=== PATIENT | male | born 1945 | race Caucasian/White ===

== ENCOUNTER → 2016-09-04 | Outpatient (CLI) | payer BC ==
[~2016-09-04] MED LIST: ALBU1AER9 INH; AMOX875T PO; BECL0.3A INH; CLR10 PO; CMD5 PO; FLM4 PO; LORA24TA7 PO; MULT-845 PO; PRED10TA PO; WARF5TAB7 PO
== END | disposition home or self-care (01) ==
LOC: C.MAMM 12:11
PROVIDERS: ATTEND Family Medicine
DX: M85.89 Other specified disorders of bone density and structure, multiple sites (principal)

== ENCOUNTER 2024-02-04 17:36 | Inpatient (IN) ==
--- NOTE | 2024-02-04 17:43 | ED Triage Note ---
Date of Service February 04, 2024 Provider in Triage Author: Tulio Quintero History of Present Illness This patient was briefly evaluated while in triage. An abbreviated physical exam was performed. This patient is a 78-year-old Male who presents to the ED for evaluation hx of RA, asthma congestion and cough x few weeks seen at [facility] today and was tachycardic did an EKG showing sinus tachycardia/atrial flutter denies L/D, denies chest pain history of atrial flutter, PE on Xarelto Physical Exam GENERAL: NAD CARDIOVASCULAR: tachycardic 130-140 RESPIRATORY: CTA ABDOMEN: BS x 4. Nontender to palpation. Initial orders for labs and / or imaging were placed and patient was placed in the waiting area until a bed is available. Please see further documentation for the full ED course.
[2024-02-04] MEDS: dilTIAZem HCl 5 MG/ML 5 ML VIAL IV STA (18:03)
[2024-02-04] MEDS: dilTIAZem HCl 5 MG/ML 5 ML VIAL IV ONE (18:04)
[2024-02-04] MEDS: SODIUM CHLORIDE 0.9% 500 ML IV ONE (18:04)
[2024-02-04 18:12] LABS: Basophils # (auto) 0.03 K/uL (0.00-0.20); Basophils % (auto) 0.3 %; Eosinophils # (auto) 0.13 K/uL (0.00-0.50); Eosinophils % (auto) 1.5 %; Hematocrit (blood only) 42.8 % (42.0-52.0); Hemoglobin 14.4 g/dl (14.0-18.0); Immature Granulocytes # (auto) 0.07 K/uL (0.01-0.20); Immature Granulocytes % (auto) 0.8 %; Lymphocytes # (auto) 1.03 K/uL (1.20-3.40); Lymphocytes % (auto) 11.8 %; Mean Corpuscular Hemoglobin 32.7 pg (25.0-34.0); Mean Corpuscular Hgb Conc 33.6 g/dL (32.0-36.0); Mean Corpuscular Volume 97.1 fL (80.0-100.0); Mean Platelet Volume 9.4 fL (9.4-12.4); Monocytes # (auto) 0.77 K/uL (0.11-0.59); Monocytes % (auto) 8.8 %; Neutrophils % (auto) 76.8 %; Platelet Count 201 K/uL (130-400); RDW Coefficient of Variation 12.9 % (11.5-14.5); RDW Standard Deviation 46.3 fL (36.4-46.3); Red Blood Count 4.41 M/uL (4.70-6.10); White Blood Count 8.73 K/ul (4.8-10.8)
--- NOTE | 2024-02-04 18:19 | Emergency Department Note ---
History of Present Illness General Chief complaint: Cardiac Assessment Stated complaint: high rate of heart beat,coughing, Time Seen by Provider: 02/04/24 17:54 History of Present Illness Provider complaint: Cough palpitations difficulty breathing Onset (ago): week(s) 2 Associated symptoms: + cough and + shortness of breath; no fever/chills 78-year-old male with history of PE on Xarelto presents emergency department for cough palpitations and difficulty breathing. Patient reports his symptoms started 3 weeks ago. Patient states he is currently on prednisone and azithromycin but has not been helping. He states his cough has been causing him to have difficulty breathing which has been causing him to have palpitations. Patient states he has a history of atrial flutter and he feels like he might be in atrial flutter again. No chest pain. No missed doses of Xarelto. Home Medications Medication Instructions Recorded Confirmed Type albuterol sulfate 90 mcg/actuation 2 puff inhalation Q6H PRN 01/23/18 11/15/21 History aerosol inhaler Shortness Of Breath Or Wheezing folic acid 800 mcg tablet 800 mcg PO QAM 01/23/18 11/15/21 History hydroxychloroquine 200 mg tablet 400 mg PO QAM 01/23/18 11/15/21 History losartan 100 mg tablet 100 mg PO QAM 01/23/18 11/15/21 History multivitamin 1 tab PO QAM 01/23/18 11/15/21 History alendronate 70 mg tablet (Fosamax) 70 mg PO WK 09/06/21 11/15/21 History budesonide-formoterol HFA 80 1 inh inhalation BID 09/06/21 11/15/21 History mcg-4.5 mcg/actuation aerosol inhaler (Symbicort) cholecalciferol (vitamin D3) 125 125 mcg PO QAM 09/06/21 11/15/21 History mcg (5,000 unit) tablet (Vitamin D3) loratadine 10 mg tablet (Claritin) 10 mg PO QAM 09/06/21 11/15/21 History rivaroxaban 20 mg tablet (Xarelto) 20 mg PO QAM 09/06/21 11/15/21 History mirabegron 50 mg tablet,extended 50 mg PO DAILY #90 tabs 11/15/21 11/15/21 Rx release 24 hr (Myrbetriq) oxycodone 5 mg tablet 5 mg PO Q6H PRN pain #12 tabs 04/10/22 Rx Allergies Allergy/AdvReac Type Severity Reaction Status Date / Time Sulfa (Sulfonamide Allergy Mild Unknown Verified 11/15/21 09:06 Antibiotics) Past Med/Surg History Problem List (Updated 02/04/24 @ 19:19 by Leonardo Banegas MD) Atrial fibrillation with RVR (Acute) Encounter for pre-operative examination BPH (benign prostatic hyperplasia) BPH with obstruction/lower urinary tract symptoms COVID-19 (Acute) MTHFR (methylene THF reductase) deficiency and homocystinuria Allergic rhinitis Acquired deviated nasal septum History of pulmonary embolism d/t clotting disorder - early 1999' approx. 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 Mcdermott History of COVID-04 June 2021 - congestion History of MTHFR mutation taking xarelto daily - Dr. Mcdermott BPH (benign prostatic hyperplasia) Rheumatoid arthritis HTN (hypertension) Surgical History S/P scrotal varicocelectomy History of tonsillectomy Family History Father Hypertension Mother Hypertension Other No family history of adverse response to anesthesia No family history of bleeding disorder Social History Smoking Status: Former smoker Tobacco Type: Cigarettes Cigarettes Per Day: pack every couple days; Second Hand Exposure: No; Do You Dip or Chew Tobacco: No; Hx Alcohol Use: Yes Alcohol type: beer, wine and hard liquor Hx Substance Use: No Preferred Language: Romanian Communication Ability: Effective Vibrating Screen Operator Required: No Beliefs That Will Affect Care: None marital status: Current Living Situation: Spouse current occupational status: retired Feels Safe at Home: Yes Assistive Devices: Glasses Physical Exam Vital Signs Vital Signs - 24 hr 02/04/24 17:40 02/04/24 17:56 02/04/24 18:19 Temperature 36.5 C Temperature Source Temporal Artery Scan Pulse Rate 145 H 135 H Respiratory Rate 22 Blood Pressure 129/89 Blood Pressure Mean 102 Pulse Oximetry 95 95 Oxygen Delivery Method Room Air Room Air Oxygen Flow Rate 0 Sepsis Recent Fever Within 48 Hours No Sepsis New/Unexplained Change in Mental Status No Sepsis Action Taken by Nursing No Action Required Physical Exam GENERAL: oriented to person, place, and time. appears well-developed and well- nourished. HENT: Exam performed. - Head: Normocephalic and atraumatic. EYES: Conjunctivae and EOM are normal. Right eye exhibits no discharge. Left eye exhibits no discharge. No scleral icterus. NECK: Normal range of motion. Neck supple. No JVD present. CV: Tachycardic rate, irregular rhythm, normal heart sounds and intact distal pulses. There is no peripheral edema. Palpable radial pulses bue. PULM/CHEST: Rhonchi bilaterally. ABD: The abdomen is soft. There is no tenderness. NEURO: Motor and sensation grossly intact. SKIN: Skin is warm and dry. He is not diaphoretic. PSYCH: normal mood and affect. Behavior is normal. Judgment and thought content normal. Course Course 1753: The patient was evaluated in room A12. A complete history and physical exam was performed Cardiac monitoring: An order was placed for continuous cardiac monitoring. The monitor shows a rate of 145 with atrial flutter rhythm interpreted by me Large-bore IV access was obtained. Patient found to be in atrial flutter with rapid ventricular response. Cardizem 20 mg bolus was pushed on the patient which improved the patient's ventricular rate. 1918: Patient became tachycardic after IV bolus of Cardizem. Patient is on Cardizem drip which controlled the patient's ventricular rate. X-ray shows fluid overload. Lasix ordered for the patient. Labs are otherwise unremarkable. [facility]. Administered Medications Sodium Chloride (Nss) 500 mls @ 125 mls/hr IV .Q4H REPLACED BY [facility] Stop: 02/04/24 21:59 Last Admin: 02/04/24 18:21 Dose: 125 mls/hr Documented By: BERNADETTE Diltiazem HCl 125 mg/ Dextrose 125 mls @ 5 mls/hr IV .Q24H MAINE; Protocol Stop: 03/05/24 18:14 Last Admin: 02/04/24 18:23 Dose: 5 mg/hr, 5 mls/hr Documented By: BERNADETTE Co-signed By: Discontinued Medications Diltiazem HCl (Diltiazem Hcl 5 Mg/Ml 5 Ml Vial) Confirm Administered Dose 25 mg IV .STK-MED ONE Stop: 02/04/24 17:57 Last Admin: 02/04/24 18:04 Dose: Not Given Documented By: CC Diltiazem HCl (Diltiazem Hcl 5 Mg/Ml 5 Ml Vial) 20 mg IV NOW STA Stop: 02/04/24 17:58 Last Admin: 02/04/24 18:03 Dose: 20 mg Documented By: CC Co-signed By: SANDY Hydrocodone Bit/Homatropine Methylb (Hydrocodone/Homatropine Syrup 5mg/1.5mg 5ml Udp) 5 ml PO NOW STA Stop: 02/04/24 18:03 Last Admin: 02/04/24 18:20 Dose: 5 ml Documented By: BERNADETTE Sodium Chloride (Nss) 500 mls @ 999 mls/hr IV .Q31M ONE Stop: 02/04/24 18:30 Last Infusion: 02/04/24 18:19 Dose: Infused Documented By: Admin: 02/04/24 18:04 Dose: 999 mls/hr Documented By: OC Miscellaneous (Stat Iv Infusion Titration Per Protocol) 1 each N/A NOW STA Stop: 02/04/24 18:03 Last Admin: 02/04/24 18:57 Dose: Not Given Documented By: DEMOND Critical Care Time Critical Care Time: Yes Total Critical Care Time: 71 I have personally spent greater than 71 minutes of critical care time in the direct management of this patient. This includes bedside care, interpretation of diagnostic studies, and testing, discussion with consultants, patient, and family members, and other required patient management activities. This 71 minutes is in excess of all separately billable procedures. Medical Decision Making Laboratory Data Attestation: I reviewed the patient's lab results. 02/04/24 17:50 02/04/24 17:50 Lab Results 02/04/24 Range/Units 17:50 WBC 8.73 (4.8-10.8) K/ul RBC 4.41 L (4.70-6.10) M/uL Hgb 14.4 (14.0-18.0) g/dl Hct 42.8 (42.0-52.0) % MCV 97.1 (80.0-100.0) fL MCH 32.7 (25.0-34.0) pg MCHC 33.6 (32.0-36.0) g/dL RDW Std Deviation 46.3 (36.4-46.3) fL RDW Coeff of Susan 12.9 (11.5-14.5) % Plt Count 201 (130-400) K/uL MPV 9.4 (9.4-12.4) fL Immature Gran % (Auto) 0.8 % Neut % (Auto) 76.8 % Lymph % (Auto) 11.8 % [place] % (Auto) 8.8 % Eos % (Auto) 1.5 % Baso % (Auto) 0.3 % Neut # (Auto) 6.70 H (1.40-6.50) K/uL Lymph # (Auto) 1.03 L (1.20-3.40) K/uL [place] # (Auto) 0.77 H (0.11-0.59) K/uL Eos # (Auto) 0.13 (0.00-0.50) K/uL Baso # (Auto) 0.03 (0.00-0.20) K/uL Immature Gran # (Auto) 0.07 (0.01-0.20) K/uL PT 13.5 H (9.0-12.0) Seconds INR 1.3 H (0.9-1.1) APTT 29 (21-31) Seconds PTT Ratio 1.1 Sodium 142 (136-145) mmol/L Potassium 4.6 (3.5-5.1) mmol/L Chloride 108 H (98-107) mmol/L Carbon Dioxide 29 (21-32) mmol/L Anion Gap 5 (3-11) BUN 22 (6-23) mg/dl Creatinine 0.97 (0.6-1.4) mg/dl Est Cr Clr Drug Dosing 70.9 ml/min eGFR 79.90 BUN/Creatinine Ratio 22.7 H (10-20) Glucose 91 (70-99(Fasting)) mg/dl Calcium 10.0 (8.6-10.3) mg/dl Magnesium 2.0 (1.7-2.4) mg/dl Total Bilirubin 0.6 (0.2-1.0) mg/dl AST 22 (13-39) U/L ALT 22 (7-52) U/L Alkaline Phosphatase 44 (34-104) U/L Troponin I High Sens 14.3 (0-20) pg/ml Total Protein 6.8 (6.0-8.3) gm/dl Albumin 4.5 (3.4-5.0) gm/dl Globulin 2.3 L (2.5-4.0) gm/dl Albumin/Globulin Ratio 2.0 (0.9-2) TSH 1.432 (0.300-4.500) uIu/ml Imaging Data Attestation: I personally reviewed and interpreted this imaging study as follows: My Impression: Chest x-ray: Cardiomegaly with cephalization Radiologist's Impression: Chest X-Ray 02/04/24 17:43 SINGLE VIEW CHEST CLINICAL HISTORY: Cough. Tachycardia FINDINGS: 2 AP, portable, upright chest radiographs are compared to study dated 01/23/2018 and correlated with chest CT dated 04/10/2022. The heart is enlarged noting atherosclerotic calcification of the thoracic aorta. There is pulmonary vascular congestion. Scarring/atelectasis is noted at the lung bases. No large pleural effusion or pneumothorax is seen. The skeletal structures are osteopenic. There are chronic/healed right-sided rib fractures. IMPRESSION: Cardiomegaly with pulmonary vascular congestion. Radiographic follow-up to resolution is recommended. ACT 112: Negative or not required by law. Electronically signed by: Marcni Ceja M.D. 02/04/2024 6:33 PM ECG Data Attestation: I personally reviewed and interpreted this ECG as follows: Additional Comments: EKG #1 at 1747: Atrial flutter with a rate of 135. QRS QTc intervals within normal limits. No ST elevation or ST depression. EKG #2 at 1801 status post Cardizem 20 mg IV bolus: Atrial fibrillation with a rate of 110. QRS and QTc intervals within normal limits. No ST elevation or ST depression. [facility] Narrative 1754: The patient was evaluated in room A12. A complete history and physical exam was performed Cardiac monitoring: An order was placed for continuous cardiac monitoring. The monitor shows a rate of 145 with atrial flutter rhythm interpreted by me Large-bore IV access was obtained. Patient found to be in atrial flutter with rapid ventricular response. Cardizem 20 mg bolus was pushed on the patient which improved the patient's ventricular rate. 1918: Patient became tachycardic after IV bolus of Cardizem. Patient is on Cardizem drip which controlled the patient's ventricular rate. X-ray shows fluid overload. Lasix ordered for the patient. Labs are otherwise unremarkable. Patient will be admitted for A-fib RVR to the [facility] hospitalist team. Impression & Plan Atrial fibrillation with RVR Discharge Plan Visit Data Chief Complaint: Cardiac Assessment Stated Complaint: high rate of heart beat,coughing, ED Provider: Leonardo Banegas Discharge Problem: Atrial fibrillation with RVR Patient Disposition: Being Evaluated by Hospitalist Forms Stand Alone Forms: My [facility] Prescriptions Prescriptions: No Action Myrbetriq 50 mg tablet extended release 24 hr 50 mg PO DAILY Qty: 90 3RF multivitamin Tablet 1 tab PO QAM hydroxychloroquine 200 mg tablet 400 mg PO QAM albuterol sulfate 90 mcg/actuation Hfa Aerosol Inhaler 2 puff INHALATION Q6H PRN (Reason: Shortness Of Breath Or Wheezing) losartan 100 mg tablet 100 mg PO QAM folic acid 800 mcg Tablet 800 mcg PO QAM oxycodone 5 mg tablet 5 mg PO Q6H PRN (Reason: pain) Qty: 12 0RF Rx Instructions: Initial Treatment alendronate [Fosamax] 70 mg Tablet 70 mg PO WK loratadine [Claritin] 10 mg Tablet 10 mg PO QAM budesonide-formoterol [Symbicort] 80-4.5 mcg/actuation Hfa Aerosol Inhaler 1 inh INHALATION BID cholecalciferol (vitamin D3) [Vitamin D3] 125 mcg (5,000 unit) Tablet 125 mcg PO QAM Xarelto 20 mg Tablet 20 mg PO QAM Referrals Referrals: Martell Stout DO [Primary Care Provider] -
[2024-02-04] MEDS: HYDROcodone/HOMATROPINE SYRUP 5MG/1.5MG 5ML UDP PO STA (18:20)
[2024-02-04] MEDS: SODIUM CHLORIDE 0.9% 500 ML IV SCH (18:21)
[2024-02-04] MEDS: dilTIAZem HCL 125 MG in DEXTROSE 5% 100 ML IV SCH (18:23)
[2024-02-04 18:28] LABS: Albumin Level 4.5 gm/dl (3.4-5.0); BUN Creatinine Ratio 22.7 (10-20); Bilirubin,Total 0.6 mg/dl (0.2-1.0); Creatinine Clr Calc Pharmacy 70.9 ml/min; Globulin 2.3 gm/dl (2.5-4.0); Potassium 4.6 mmol/L (3.5-5.1); Total Protein 6.8 gm/dl (6.0-8.3)
[2024-02-04 18:34] LABS: Troponin I High Sensitivity 14.3 pg/ml (0-20)
--- NOTE | 2024-02-04 18:34 | XRay Report ---
SINGLE VIEW CHEST CLINICAL HISTORY: Cough. Tachycardia FINDINGS: 2 AP, portable, upright chest radiographs are compared to study dated 01/23/2018 and correl ated with chest CT dated 04/10/2022. The heart is enlarged noting atherosclerotic calcification of th e thoracic aorta. There is pulmonary vascular congestion. Scarring/atelectasis is noted at the lung b ases. No large pleural effusion or pneumothorax is seen. The skeletal structures are osteopenic. Ther e are chronic/healed right-sided rib fractures. IMPRESSION: Cardiomegaly with pulmonary vascular congestion. Radiographic follow-up to resolution is recommended. ACT 112: Negative or not required by law. Electronically signed by: Marcin Ceja M.D. 02/04/2024 6:33 PM
[2024-02-04 18:42] LABS: INR 1.3 (0.9-1.1); Partial Thromboplastin Ratio 1.1; Partial Thromboplastin Time 29 Seconds (21-31); Prothrombin Time 13.5 Seconds (9.0-12.0); Thyroid Stimulating Hormone 1.432 uIu/ml (0.300-4.500)
[2024-02-04] MEDS: STAT IV Infusion **Titration per Protocol STA (18:57)
[2024-02-04] MEDS: FUROSEMIDE 40 MG/4 ML VIAL IV ONE (19:19)
--- NOTE | 2024-02-04 20:09 | History & Physical Report ---
Date of Service February 04, 2024 Assessment & Plan (1) Atrial flutter with rapid ventricular response: (2) CHF exacerbation: (3) BPH with obstruction/lower urinary tract symptoms: (4) History of pulmonary embolism: (5) Asthma: (6) Rheumatoid arthritis: (7) HTN (hypertension): Plan Atrial flutter with RVR/history [id number]/CHF exacerbation/hypertension- The patient will be admitted to telemetry for serial cardiac enzymes, serial EKG's, cardiac rhythm monitoring and a 2-D echocardiogram with Dopplers. Initial troponin 14.3, with follow-up pending Status post Cardizem 20 mg IV push, followed by Cardizem drip, which will be continued Given furosemide 40 mg IV, after initial 500 mL bolus of normal saline by the ED. Furosemide 40 mg IV every morning Continue Xarelto Hold losartan Consult cardiology Cough/asthma- Continue Symbicort 1 inhalation twice daily, and albuterol HFA 2 puffs every 6 hours as needed Send a respiratory BioFire, since symptoms began with a cough Rheumatoid arthritis- Continue hydroxychloroquine, folic acid Acetaminophen 650 mg by mouth every 6 hours as needed for mild pain or fever Continue oxycodone 5 mg p.o. every 6 hours as needed moderate to severe pain BPH with LUTS/bladder spasm- Continue mirabegron History of Present Illness Chief Complaint: The patient presents to the emergency department with report of a cough that began about 2 weeks ago, that he attributed to allergies and asthma, but has not responded to use of his antihistamine and increased use of his inhaler. Today he developed the acute onset of rapid heart rate and palpitations, and with his known history of atrial flutter, he presented to the ED for assessment. Primary Care Provider: Martell Stout DO The patient is a 78-year-old male with past medical history including atrial flutter on chronic Xarelto, BPH with LUTS, MTHFR, allergic rhinitis, history of pulmonary embolism, obesity, asthma, osteoporosis, rheumatoid arthritis, and chronic pain syndrome. Presents to the emergency department with symptoms as noted above. He was found to be in atrial flutter with RVR, and started on Cardizem bolus/drip per protocol by the ED. Chest x-ray also revealed congestive heart failure, and fluids he received furosemide 40 mg IV after initial 500 mL bolus of normal saline. Due to symptoms presenting with cough, respiratory BioFire was advised to be sent, and is pending at this time Allergies Allergy/AdvReac Type Severity Reaction Status Date / Time Sulfa (Sulfonamide Allergy Mild Unknown Verified 11/15/21 09:06 Antibiotics) Home Medications Medication Instructions Recorded Confirmed Type albuterol sulfate 90 mcg/actuation 2 puff inhalation Q6H PRN 01/23/18 11/15/21 History aerosol inhaler Shortness Of Breath Or Wheezing folic acid 800 mcg tablet 800 mcg PO QAM 01/23/18 11/15/21 History hydroxychloroquine 200 mg tablet 400 mg PO QAM 01/23/18 11/15/21 History losartan 100 mg tablet 100 mg PO QAM 01/23/18 11/15/21 History multivitamin 1 tab PO QAM 01/23/18 11/15/21 History alendronate 70 mg tablet (Fosamax) 70 mg PO WK 09/06/21 11/15/21 History budesonide-formoterol HFA 80 1 inh inhalation BID 09/06/21 11/15/21 History mcg-4.5 mcg/actuation aerosol inhaler (Symbicort) cholecalciferol (vitamin D3) 125 125 mcg PO QAM 09/06/21 11/15/21 History mcg (5,000 unit) tablet (Vitamin D3) loratadine 10 mg tablet (Claritin) 10 mg PO QAM 09/06/21 11/15/21 History rivaroxaban 20 mg tablet (Xarelto) 20 mg PO QAM 09/06/21 11/15/21 History mirabegron 50 mg tablet,extended 50 mg PO DAILY #90 tabs 11/15/21 11/15/21 Rx release 24 hr (Myrbetriq) oxycodone 5 mg tablet 5 mg PO Q6H PRN pain #12 tabs 04/10/22 Rx Past Med/Surg History Problem List (Updated 02/04/24 @ 20:03 by Blayne Guerrero MD) HTN (hypertension) Rheumatoid arthritis CHF exacerbation Atrial flutter with rapid ventricular response Atrial fibrillation with RVR (Acute) Encounter for pre-operative examination BPH (benign prostatic hyperplasia) BPH with obstruction/lower urinary tract symptoms COVID-19 (Acute) MTHFR (methylene THF reductase) deficiency and homocystinuria Allergic rhinitis Acquired deviated nasal septum 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 Mcdermott History of COVID-04 June 2021 - congestion History of MTHFR mutation taking xarelto daily - Dr. Mcdermott BPH (benign prostatic hyperplasia) Rheumatoid arthritis HTN (hypertension) Surgical History S/P scrotal varicocelectomy History of tonsillectomy Family History Father Hypertension Mother Hypertension Other No family history of adverse response to anesthesia No family history of bleeding disorder Social History Smoking Status: Former smoker Tobacco Type: Cigarettes Cigarettes Per Day: pack every couple days; Second Hand Exposure: No; Do You Dip or Chew Tobacco: No; Hx Alcohol Use: Yes Alcohol type: beer, wine and hard liquor Hx Substance Use: No Preferred Language: Lao Communication Ability: Effective Supervisor Cook Room Required: No Beliefs That Will Affect Care: None marital status: Current Living Situation: Spouse current occupational status: retired Feels Safe at Home: Yes Assistive Devices: Glasses Review of Systems Review of Systems: The patient denies chest pain, lower extremity swelling, or leg sore throat, fevers, chills, sweats, nausea, vomiting, diarrhea , constipation, abdominal pain, pelvic pain, blood in urine or stool, dysuria, urinary frequency or urgency, lightheadedness, dizziness, headache, memory loss, loss of consciousness, rash, abnormal bruising or bleeding, imbalance, focal weakness, numbness or tingling in arms or legs, generalized arthralgias or myalgias, back or neck pain, or night sweats. The review of systems is otherwise negative other than for that already noted above, and at least 10 systems have been reviewed. Physical Exam Physical Exam: The patient is awake, alert and oriented 3, well developed and well nourished, normocephalic and atraumatic, lying in bed and in no acute distress. HEENT--PERRL, EOMI, mucous membranes and oropharynx normal Neck--supple. No JVD. No bruits. Thyroid normal, trachea midline, no adenopathy. Heart--normal S1 and S2. No murmurs, rubs or gallops. Lungs--crackles at the bases bilaterally. No respiratory distress, no accessory muscle use. Abdomen--normal bowel sounds and soft. Nontender. Nondistended. Tympanitic. Obese Extremities--1+ bilateral pretibial pitting edema. Dermatologic--normal skin turgor, normal color, no abnormal lymph nodes, no rash. Neurologic--cranial nerves II through XII grossly intact. Rheumatologic--normal range of motion. Psychiatric--normal affect. Results & Data Results & Data Vital Signs (Past 12 Hours) Vital Signs Temp Pulse Resp BP Pulse Ox O2 Del Method O2 Flow Rate 02/04/24 19:01 114 H 18 123/89 95 Room Air 02/04/24 18:19 95 Room Air 0 02/04/24 17:56 135 H 02/04/24 17:40 36.5 C 145 H 22 129/89 95 Room Air Laboratory Results Laboratory Results WBC 8.73 K/ul (4.8-10.8) 02/04/24 17:50 RBC 4.41 M/uL (4.70-6.10) L 02/04/24 17:50 Hgb 14.4 g/dl (14.0-18.0) 02/04/24 17:50 Hct 42.8 % (42.0-52.0) 02/04/24 17:50 MCV 97.1 fL (80.0-100.0) 02/04/24 17:50 MCH 32.7 pg (25.0-34.0) 02/04/24 17:50 MCHC 33.6 g/dL (32.0-36.0) 02/04/24 17:50 RDW Std Deviation 46.3 fL (36.4-46.3) 02/04/24 17:50 RDW Coeff of Susan 12.9 % (11.5-14.5) 02/04/24 17:50 Plt Count 201 K/uL (130-400) 02/04/24 17:50 MPV 9.4 fL (9.4-12.4) 02/04/24 17:50 Immature Gran % (Auto) 0.8 % 02/04/24 17:50 Neut % (Auto) 76.8 % 02/04/24 17:50 Lymph % (Auto) 11.8 % 02/04/24 17:50 Cambria % (Auto) 8.8 % 02/04/24 17:50 Eos % (Auto) 1.5 % 02/04/24 17:50 Baso % (Auto) 0.3 % 02/04/24 17:50 Neut # (Auto) 6.70 K/uL (1.40-6.50) H 02/04/24 17:50 Lymph # (Auto) 1.03 K/uL (1.20-3.40) L 02/04/24 17:50 Cambria # (Auto) 0.77 K/uL (0.11-0.59) H 02/04/24 17:50 Eos # (Auto) 0.13 K/uL (0.00-0.50) 02/04/24 17:50 Baso # (Auto) 0.03 K/uL (0.00-0.20) 02/04/24 17:50 Immature Gran # (Auto) 0.07 K/uL (0.01-0.20) 02/04/24 17:50 PT 13.5 Seconds (9.0-12.0) H 02/04/24 17:50 INR 1.3 (0.9-1.1) H 02/04/24 17:50 APTT 29 Seconds (21-31) 02/04/24 17:50 PTT Ratio 1.1 02/04/24 17:50 Sodium 142 mmol/L (136-145) 02/04/24 17:50 Potassium 4.6 mmol/L (3.5-5.1) 02/04/24 17:50 Chloride 108 mmol/L (98-107) H 02/04/24 17:50 Carbon Dioxide 29 mmol/L (21-32) 02/04/24 17:50 Anion Gap 5 (3-11) 02/04/24 17:50 BUN 22 mg/dl (6-23) 02/04/24 17:50 Creatinine 0.97 mg/dl (0.6-1.4) 02/04/24 17:50 Est Cr Clr Drug Dosing 70.9 ml/min 02/04/24 17:50 eGFR 79.90 02/04/24 17:50 BUN/Creatinine Ratio 22.7 (10-20) H 02/04/24 17:50 Glucose 91 mg/dl (70-99(Fasting)) 02/04/24 17:50 Calcium 10.0 mg/dl (8.6-10.3) 02/04/24 17:50 Magnesium 2.0 mg/dl (1.7-2.4) 02/04/24 17:50 Total Bilirubin 0.6 mg/dl (0.2-1.0) 02/04/24 17:50 AST 22 U/L (13-39) 02/04/24 17:50 ALT 22 U/L (7-52) 02/04/24 17:50 Alkaline Phosphatase 44 U/L (34-104) 02/04/24 17:50 Troponin I High Sens 14.3 pg/ml (0-20) 02/04/24 17:50 Total Protein 6.8 gm/dl (6.0-8.3) 02/04/24 17:50 Albumin 4.5 gm/dl (3.4-5.0) 02/04/24 17:50 Globulin 2.3 gm/dl (2.5-4.0) L 02/04/24 17:50 Albumin/Globulin Ratio 2.0 (0.9-2) 02/04/24 17:50 TSH 1.432 uIu/ml (0.300-4.500) 02/04/24 17:50 Impressions Chest X-Ray 02/04/24 17:43 SINGLE VIEW CHEST CLINICAL HISTORY: Cough. Tachycardia FINDINGS: 2 AP, portable, upright chest radiographs are compared to study dated 01/23/2018 and correlated with chest CT dated 04/10/2022. The heart is enlarged noting atherosclerotic calcification of the thoracic aorta. There is pulmonary vascular congestion. Scarring/atelectasis is noted at the lung bases. No large pleural effusion or pneumothorax is seen. The skeletal structures are osteopenic. There are chronic/healed right-sided rib fractures. IMPRESSION: Cardiomegaly with pulmonary vascular congestion. Radiographic follow-up to resolution is recommended. ACT 112: Negative or not required by law. Electronically signed by: Marcin Ceja M.D. 02/04/2024 6:33 PM Code Status & VTE Plan Code Status Full code VTE Prophylaxis Plan VTE Prophylaxis will be ordered: Yes PG Care Time/CCT Total # of Minutes Spent Total Time Spent with Patient: Total time spent is greater than 50% in coordination of care (as documented) at patient's floor/unit and/or counseling patient: Coding Level of Care Code 84836 INT INP/OBS CARE 3/75MIN Diagnoses Atrial flutter with rapid ventricular response I48.92 CHF exacerbation I50.9 BPH with obstruction/lower urinary tract symptoms N40.1; N13.8 History of pulmonary embolism Z86.711 Asthma J45.909 Rheumatoid arthritis M06.9 HTN (hypertension) I10
[2024-02-04 21:02] LABS: Adenovirus PCR Not Detected (NotDetected); Bordetella parapertussis PCR Not Detected (NotDetected); Bordetella pertussis PCR Not Detected (NotDetected); Chlamydia pneumoniae PCR Not Detected (NotDetected); Coronavirus 229E PCR Not Detected (NotDetected); Coronavirus CoV-2 (COVID19)PCR Not Detected (NotDetected); Coronavirus HKU1 PCR Not Detected (NotDetected); Coronavirus NL63 PCR Not Detected (NotDetected); Coronavirus OC43PCR Not Detected (NotDetected); Human Metapneumovirus PCR Not Detected (NotDetected); Influenza A PCR Not Detected (NotDetected); Influenza B PCR Not Detected (NotDetected); Mycoplasma pneumoniae PCR Not Detected (NotDetected); Parainfluenza Virus 1 PCR Not Detected (NotDetected); Parainfluenza Virus 2 PCR Not Detected (NotDetected); Parainfluenza Virus 3 PCR Not Detected (NotDetected); Parainfluenza Virus 4 PCR Not Detected (NotDetected); Respiratory Syncytial VirusPCR Not Detected (NotDetected); Rhinovirus/Enterovirus PCR Not Detected (NotDetected)
[2024-02-04] MEDS ORDERED: ACETAMINOPHEN 325 MG TAB PO PRN (22:57)
[2024-02-04] MEDS ORDERED: ALBUTEROL HFA 8 GM INHALER INH PRN (22:57)
[2024-02-04] MEDS ORDERED: INFLUENZA VACC TS2024-25(65y+)/PF (IIV3) 0.5mL Syr IM ONE (23:10)
--- OUTSIDE RECORDS SUMMARY | 2024-02-05 01:49 | External Medical Summary | Summary of Care ---
Author Name Unknown Organization [facility] [address] [facility] [facility] [address] Phone [phone] Care Team Providers Care Media Librarian Name Role Phone GirishMartell holland DO Primary Care Provider Encounter Details Date Type Department Care Team (Late st Contact Info) Description 02/02/2024 Orders Only PATIENT PORTAL DO NOT DELETE THIS DEPT USED BY [facility] [id number] Allergies Active Allergy Reactions Criticality Noted Date Comments Pollen 07/01/2012 Hay fever, asthma attacks Sulfa Antibiotics Unknown 07/01/2012 documented as of this encounter (statuses as of 02/02/2024) Medications Medication Sig Dispensed Refills Start Date End Date Status PROAIR HFA 108 (90 BASE) MCG/ACT IN AERS 2 puffs as needed Active CENTRUM SILVER PO CHEW 1 daily Active FOLIC ACID 800 MCG PO TABS 1 daily Active XARELTO 20 MG Tablet 1 tab daily 0 08/16/2015 Act radha Losartan Potassium 100 MG Tablet 1 tab daily 0 08/20/2015 Active Cetirizine HCl 10 MG Oral Capsule Take 1 Capsule by mouth as needed. Active Loratadine 10 MG Oral Tablet (Claritin) As needed 01/13/2021 Active Ergocalciferol 1.25 MG (46256 UT) Oral Capsule (Vitamin D2(Drisdol)) weekly 07/29/2021 Active Symbicort 160-4.5 MCG/ACT Inhalation Aerosol 02/13/2022 Active Zoster Vac Recomb Adjuvanted 50 MCG/0.5ML Intramuscular Suspension Reconstituted (Shingrix) 0.5 mL. 05/27/2021 Active predniSONE 1 MG Oral Tablet (Deltasone) Taper Prednisone by 1 mg per month 90 Tablet 5 03/05/2023 Active Alendronate Sodium 70 MG Oral Tablet (Fosamax) take 1 tablet by mouth every 7 days for 28 DAYS 12 Tablet 4 07/31/2023 Active Hydroxychloroquine Sulfate 200 MG Oral Tablet (Plaquenil) Take 2 Tablets by mouth daily. 180 Tablet 3 08/10/2023 Active predniSONE 5 MG Oral Tablet (Deltasone) Take 1 Tablet by mouth in the morning. 90 Tablet 1 11/08/2023 Active documented as of this encounter (statuses as of 02/02/2024) Active Problems Problem Noted Date Diagnosed Date Senile osteoporosis 08/29/2021 Encounter for therapeutic drug monitoring 2021 Primary osteoarthritis of both knees 08/29/2021 Primary osteoarthritis of right ankle 08/29/2021 Rheumatoid arthritis involvi ng multiple sites with positive rheumatoid factor 09/06/2015 documented as of this encounter (statuses as of 02/02/2024) Resolved Problems Problem Noted Date Diagnosed Date Resolved Date RA (rheumatoid arthritis) 07/15/2012 documented as of this encounter (statuses as of 02/02/2024) Immunizations Name Administration Dates Next Due COVID-19 mRNA, LNP-s, No Pre serve, 2-Dose Series (Moderna) 2020,06/10/2020,05/13/2020 COVID-19, MRNA-LNP, 23-24, P F, 50 MCG/0.5 mL, 12 YRS AND ABOVE, IM (MODERNA-Spikevax) 02/17/2021 Covid-19, Mrna, Lnp-s, Pf, B ivalent, 50 Mcg, IM, 12 yrs and above (Moderna) 02/12/2022 Pneumococcal Conjugate Vacc, 13 Valent (Prevnar) 07/13/2014 Pneumococcal Polysaccharide PPV23 (Pneumovax) 07/15/2012 Seasonal Influenza Vac., MDV , IM, 0.5 mL (Fluzone) 01/28/2014,01/28/2013,03/04/2012 Seasonal Influenza, Quadriva lent, No Preserve, IM 01/28/2015 Varicella Zoster Vaccine (Adult) 05/15/2016 documented as of this encounter Social History Tobacco Use Types Packs/Day Years Used Date Smoking Tobacco: Former Cigarettes 0.5 20 Smokeless Tobacco: Never Comments:Pt quit smoking 20 yrs ago Alcohol Use Standard Drinks/Week Comments Yes 0 (1 standard drink = 0.6 oz pur e alcohol) 1 drink daily Utilities Answer Date Recorded Do you have trouble paying y our heating, water, or electric bill? (Adult - for ages 18 years and over) Not on file 10/02/2023 Is your family able to pay t he heat, water, or electric bill? (Household - for ages 0-17 years) Not on file 10/02/2023 Does your family have access to good internet? (Household - for ages 0-17 years) Not on file 10/02/2023 Social Connections Answer Date Recorded How often do you feel lonely or isolated from those around you? (Adult - for ages 18 years and over) Not on file 10/02/2023 Sex and Gender Information Value Date Recorded Sex Assigned at Male 07/31/2023 9:41 AM EDT Gender Identity Male 07/31/2023 9:41 AM EDT Sexual Orientation Straight 07/31/2023 9: 41 AM EDT Job Start Date Occupation Industry Not on file Not on file Not on file documented as of this encounter Plan of Treatment Upcoming Encounters Date Type Department Care Team (Late st Contact Info) Description 09/02/2024 10:30 AM EDT Office Visit Rheumatology [facility] [address] [place] [address] Ned Covarrubias CRNP [facility] [place] [address] Health Maintenance Due Date Last Done Comments Depression Screening 1957 Hepatitis C Screening 08/18/1963 DTap/Tdap Vaccines (1 - Tdap) 1964 VITAMIN D LEVEL ONCE IN A LIFETIME-USE SMARTSET# 73709 1985 Zoster Vaccines (1 of 2) 07/10/2016 05/15/2016 COVID-19 Vaccine ( season) 2023 02/12/2022, 02/17/2021, 2020, Additional history exists Influenza Vaccine (FLU shot) (#1) 2023 02/07/2023, 01/15/2019, 02/09/2017, Additional history exists DXA Scan 08/06/2025 08/07/2023, 04/25/2021 Pneumococcal Vaccine: 65+ Years Completed 07/13/2014, 07/15/2012 HPV (Gardasil) Vaccine Aged Out No lo nger eligible based on patient's age to complete this topic Hepatitis B Vaccine Aged Out No longe r eligible based on patient's age to complete this topic MENINGOCOCCAL (MENACTRA/MENVEO) Aged Out No longer eligible based on patient's age to complete this topic documented as of this encounter Medical Devices Not on filedocumented as of this encounter Care Teams Media Librarian Relationship Specialty Start Date End Date Martell Stout DO [address] [place] [address] PCP - General Family Medicine 07/01/12 documented as of this encounter
--- OUTSIDE RECORDS SUMMARY | 2024-02-05 01:49 | External Medical Summary | Summary of Care ---
Author Name Unknown Organization [facility] Address [address] [place] [address] Phone [phone] Care Team Providers Care Public Housing Manager Name Role Phone Martell Stout Primary Care Provider Encounter Details Date Type Department Care Team (Late st Contact Info) Description 08/21/2023 Orders Only [facility] [address] [place] [address] Ned Covarrubias CRNP [facility] [place] [address] Allergies Active Allergy Reactions Criticality Noted Date Comments Pollen 07/01/2012 Hay fever, asthma attacks Sulfa Antibiotics Unknown 07/01/2012 documented as of this encounter (statuses as of 08/21/2023) Medications Medication Sig Dispensed Refills Start Date End Date Status PROAIR HFA 108 (90 BASE) MCG/ACT IN AERS 2 puffs as needed 0 Active CENTRUM SILVER PO CHEW 1 daily 0 Active FOLIC ACID 800 MCG PO TABS 1 daily 0 Active XARELTO 20 MG Tablet 1 tab daily 0 08/16/2015 Act ardha Losartan Potassium 100 MG Tablet 1 tab daily 0 08/20/2015 Active Cetirizine HCl 10 MG Oral Capsule Take 1 Capsule by mouth as needed. 0 Active Loratadine 10 MG Oral Tablet (Claritin) As needed 0 01/13/2021 Active Ergocalciferol 1.25 MG (46128 UT) Oral Capsule (Vitamin D2(Drisdol)) weekly 0 07/29/2021 Active Symbicort 160-4.5 MCG/ACT Inhalation Aerosol 0 02/13/2022 Active Zoster Vac Recomb Adjuvanted 50 MCG/0.5ML Intramuscular Suspension Reconstituted (Shingrix) 0.5 mL (50 mcg). 0 05/27/2021 Active predniSONE 1 MG Oral Tablet (Deltasone) Taper Prednisone by 1 mg per month 90 Tablet 5 03/05/2023 Active Alendronate Sodium 70 MG Oral Tablet (Fosamax) take 1 tablet by mouth every 7 days for 28 DAYS 12 Tablet 4 07/31/2023 Active predniSONE 5 MG Oral Tablet (Deltasone) Take 1 Tablet by mouth in the morning. In the morning.. 90 Tablet 0 08/10/2023 Active Hydroxychloroquine Sulfate 200 MG Oral Tablet (Plaquenil) Take 2 Tablets by mouth daily. 180 Tablet 3 08/10/2023 Active documented as of this encounter (statuses as of 08/21/2023) Active Problems Problem Noted Date Diagnosed Date Senile osteoporosis 08/29/2021 Encounter for therapeutic drug monitoring 2021 Primary osteoarthritis of both knees 08/29/2021 Primary osteoarthritis of right ankle 08/29/2021 Rheumatoid arthritis involvi ng multiple sites with positive rheumatoid factor 09/06/2015 documented as of this encounter (statuses as of 08/21/2023) Resolved Problems Problem Noted Date Diagnosed Date Resolved Date RA (rheumatoid arthritis) 07/15/2012 documented as of this encounter (statuses as of 08/21/2023) Immunizations Name Administration Dates Next Due COVID-19 mRNA, LNP-s, No Pre serve, 2-Dose Series (Moderna) 2020,06/10/2020,05/13/2020 COVID-19, MRNA-LNP, 23-24, P F, 50 MCG/0.5 mL, 12 YRS AND ABOVE, IM (MODERNA-Spikevax) 02/17/2021 Covid-19, Mrna, Lnp-s, Pf, B ivalent, 50 Mcg, IM, 12 yrs and above (Moderna) 02/12/2022 Pneumococcal Conjugate Vacc, 13 Valent (Prevnar) 07/13/2014 Pneumococcal Polysaccharide PPV23 (Pneumovax) 07/15/2012 Seasonal Influenza, Quadriva lent, No Preserve, IM 01/28/2015 Seasonal Influenza, Split, I IV3, With Preserve, Inj 01/28/2014,01/28/2013,03/04/2012 Varicella Zoster Vaccine (Adult) 05/15/2016 documented as of this encounter Social History Tobacco Use Types Packs/Day Years Used Date Smoking Tobacco: Former Cigarettes 0.5 20 Smokeless Tobacco: Never Comments:Pt quit smoking 20 yrs ago Alcohol Use Standard Drinks/Week Comments Yes 0 (1 standard drink = 0.6 oz pur e alcohol) 1 drink daily Sex and Gender Information Value Date Recorded [...] Care Team (Late st Contact Info) Description 01/31/2024 10:30 AM EDT Office Visit Rheumatology [place] [id number] [place] [address] Ned Covarrubias CRNP [facility] [place] [address] Health Maintenance Due Date Last Done Comments Depression Screening 1957 Hepatitis C Screening 08/18[birth year]1963 DTaP,Tdap,and Td Vaccines (1 - Tdap) 1964 VITAMIN D LEVEL ONCE IN A LIFETIME-USE SMARTSET# [id number] 1985 Zoster Vaccines (1 of 2) 07/10/2016 05/15/2016 DXA Scan 04/25/2023 08/07/2023, 04/25/2021 Pneumococcal Vaccine: 65+ Years Completed 07/13/2014, 07/15/2012 COVID-19 Vaccine Completed 02/12/2022, 07/2020, 2020, Additional history exists Influenza Vaccine (FLU shot) Completed , 01/15/2019, 02/09/2017, Additional history exists GARDASIL-HPV IMMUNIZATION SERIES Aged Out No longer eligible based on patient's age to complete this topic Hepatitis B Aged Out No longer eligi ble based on patient's age to complete this topic MENINGOCOCCAL (MENACTRA/MENVEO) Aged Out No longer eligible based on patient's age to complete this topic documented as of this encounter Medical Devices Not on filedocumented as of this encounter Care Teams Public Housing Manager Relationship Specialty Start Date End Date Martell Stout DO [address] [place] [address] PCP - General Family Medicine 07/01/12 documented as of this encounter
--- OUTSIDE RECORDS SUMMARY | 2024-02-05 01:49 | External Medical Summary | Continuity of Care Document ---
Author Name Unknown Organization [facility] [address] [address] [place] [id number] Care Team Providers Care Mold Cutting Machine Operator Name Role Phone Martell Stout Primary Care Physician [phone] Encounter [facility] [id number] Date(s): 08/15/23 - 08/15/23 [place] [address] [address] [phone] Encounter Diagnosis Osteopenia(Discharge Diagnosis) - 08/15/23 ELEVATED BP W/ HTN(Discharge Diagnosis) - 08/15/23 Rheumatoid Arthritis(Discharge Diagnosis) - 08/15/23 Anticoagulated by anticoagulation treatment(Discharge Diagnosis) - 08/15/23 Impaired fasting glucose(Discharge Diagnosis) - 08/15/23 Discharge Disposition: Home or Self Care Attending Physician: DO Stout Franklin J Allergies, Adverse Reactions, Alerts Substance Reaction Severity Status sulfa drugs unsure of reaction Active Assessment and Plan Extracted from: Title:6 month Author:DO Stout Franklin J Da te:08/15/23 Impression and Plan Diagnosis Rheumatoid Arthritis (ZJW03-JT M06.9, Discharge, Medical). Osteopenia (YNG36-CU M85.80, Discharge, Medical). Impaired fasting glucose (HPH15-IW R73.01, Discharge, Medical). ELEVATED BP W/ HTN (HOQ74-ZP I10, Discharge, Medical). Anticoagulated by anticoagulation treatment (FBV34-EK Z79.01, Discharge, Medical). Plan: Hypertension (chronic/stable) Blood pressure excellent BMP shows normal renal function and serum potassium continue current medications Check BMP in 6 months Other and unspecified hyperlipidemia (chronic/stable) Lipid profile prior to next visit Osteopenia with elevated FRAX score (chronic/uncertain) Continues on Fosamax; tolerating well. Fosamax 70 mg p.o. q. 7 days Repeat bone density reviewed with patient Rheumatoid arthritis (chronic/stable) Remains on 5 mg daily Continue with rheumatology Eye exam up to date. Seasonal allergic rhinitis (chronic/at goal) Claritin 10 mg daily Continue Symbicort to 1-2 puffs twice daily Chronic anticoagulation (chronic/stable) Remains on Xarelto for history of pulmonary embolism and MTHFR mutation Hemoglobin is stable; no evidence of bleeding BPH with nocturia (chronic/stable) He continues to take Flomax and Myrbetriq. Orders PowerOrders Laboratory: Lipid Profile Request (Order): Routine, 08/15/2023 14:41 EDT, Requested Timeframe 1 Week Prior to Next Visit, Fasting, Copy To: MD Mary, Raghu Davis CMP Request (Order): Routine, 08/15/2023 14:41 EDT, Requested Timeframe 1 Week Prior to Next Visit CBC w Platelets and Diff Request (Order): Routine, 08/15/2023 14:41 EDT, Requested Timeframe 1 Week Prior to Next Visit Patient Care Ambulatory: Follow Up Appointment Ambulatory (Order): In 6 Months, 6 month follow up Appointment Type In Office, 40, Follow up With DO Stout Franklin J Evaluation and Management: [id number] Outpatient Visit Est Lvl 4 (Order): 08/15/2023 14:41 EDT, FAMILY MEDICINE, ELEVATED BP W/ HTN | Impaired fasting glucose | Osteopenia | Rheumatoid Arthritis | Anticoagulated by anticoagulation treatment. Immunizations Given and Recorded Vaccine Date Status Refusal Reason SARS-CoV-2 mRNA-1273 (6y+ bivalent) 02/12/22 Recor ded influenza virus vaccine, inactivated 01/27/22 Give n influenza virus vaccine, inactivated 01/19/21 Give n influenza virus vaccine, inactivated 01/15/19 Give n influenza virus vaccine, inactivated 02/09/17 Give n influenza virus vaccine, inactivated 02/02/16 Give n influenza virus vaccine, inactivated 02/03/15 Give n influenza virus vaccine, inactivated 01/12/14 Give n influenza virus vaccine, inactivated 03/15/12 Give n tetanus/diphtheria/pertuss, acel (Tdap) 05/27/21 G iven SARS-CoV-2 (COVID-19) mRNA-1273 vaccine 1 02/17/21 Recorded SARS-CoV-2 (COVID-19) mRNA-1273 vaccine 2 08/17/20 Recorded SARS-CoV-2 (COVID-19) mRNA-1273 vaccine 06/10/20 R ecorded SARS-CoV-2 (COVID-19) mRNA-1273 vaccine 05/13/20 R ecorded zoster vaccine live 05/15/16 Recorded pneumococcal 13-valent vaccine 07/13/14 Given pneumococcal 23-valent vaccine 07/15/12 Recorded 1Result Comment: 2021-05-27: Historical information-source unspecified 2Result Comment: 2022-01-27: Historical information-source unspecified Medications alendronate 70 mg oral tablet Start: 05/01/23 12:50:00 EST, 1 tab, PO, q7days, Disp# 4 tab, Refills: 3, Pharmacy: [facility] #[id number] Start Date: 05/01/23 Status: Ordered Claritin 10 mg oral tablet Start: 01/13/21 9:18:00 EDT Start Date: 01/13/21 Status: Ordered ergocalciferol 1.25 mg (50,000 intl units) oral capsule Start: 07/29/21 9:19:00 EDT, 1 cap, PO, q7days, Disp# 8 cap, Refills: 0, Pharmacy: [facility] Start Date: 07/29/21 Status: Ordered losartan 100 mg oral tablet Start: 01/19/23 13:36:00 EDT, See Instructions, Disp# 90 tab, Refills: 3, take 1 tablet by mouth once daily, Pharmacy: [facility] #[id number] Start Date: 01/19/23 Status: Ordered montelukast 10 mg oral tablet Start: 10/04/22 11:06:00 EDT, 1 tab, PO, qPM, Disp# 30 tab, Refills: 1, for asthma and allergies, Pharmacy: [facility] #[id number] Start Date: 10/04/22 Status: Ordered multivitamin Start: 02/13/18 8:17:00 EDT, 1 tab, PO, Daily Start Date: 02/13/18 Status: Ordered ProAir HFA 90 mcg/inh inhalation aerosol Start: 05/27/21 9:40:00 EST, 2 puff, inhaled, qid, Disp# 3 each, Refills: 3, PRN: as needed for wheezing, Pharmacy: [facility] Start Date: 05/27/21 Status: Ordered Symbicort 160 mcg-4.5 mcg/inh inhalation aerosol Start: 02/07/23 13:32:00 EDT, 2 puff, inhaled, bid, Disp# 3 each, Refills: 3, Note to Pharmacy: note change in instructions, Pharmacy: [facility] Start Date: 02/07/23 Status: Ordered Vitamin D3 Start: 01/26/20 8:27:00 EDT Start Date: 01/26/20 Status: Ordered Xarelto 20 mg oral tablet Start: 09/26/22 12:36:00 EDT, 1 tab, PO, qPM, Disp# 90 tab, Refills: 3, Pharmacy: [facility] Start Date: 09/26/22 Status: Ordered Mental Status 08/15/23 Barriers to Learning one year None evide nt Mandatory Health Literacy Documentation Yes Health Literacy Communication Barriers N ever Primary Language Australian Problem List Condition Confirmation Course Effective Dates Status H ealth Status Informant Anticoagulated by anticoagulation treatment Confirmed Active Asthma Confirmed Active High risk for hip fracture Confirmed Active Atrial fibrillation Confirmed Active Compression fracture of L1 lumbar vertebra Confirmed Active ELEVATED BP W/ HTN Confirmed Active Expiratory stridor Confirmed Active MTHFR mutation Confirmed Active Osteopenia Confirmed Active OTHER AND UNSPECIFIED HYPERLIPIDEMIA Confirmed Active Lumbar spine pain Confirmed Active Pulmonary embolism Confirmed Active Rheumatoid Arthritis Confirmed Active Seasonal allergies Confirmed Active Knee LCL sprain Confirmed Active URINARY FREQUENCY Confirmed Active Weight disorder Confirmed Active Diagnosis Diagnosis Type Effective Dates Health Status Clinical Service Informant Rheumatoid Arthritis Discharge Diagnosis 08/15/23 Non-Specified ELEVATED BP W/ HTN Discharge Diagnosis 08/15/23 Non-Specified Osteopenia Discharge Diagnosis 08/15/23 Non-Specified Anticoagulated by anticoagulation treatment Discharge Diagnosis 08/15/23 Non-Specified Impaired fasting glucose Discharge Diagnosis 08/15/23 Non-Specified Procedures Procedure Date Related Diagnosis Body Site Status Computed tomography (CT) of abdomen and pelvis with contrast 1 04/10/[address] of chest without contrast 2 04/10/[address] of head without contrast 3 04/10/22 Completed Eye examination 4 08/04/19 Complet ed Lumbar spine DEXA scan T score 5, 6 03/10/19 Completed Bone density scan 7 09/04/16 Compl eted Chest CTA [address] of chest 9 Completed knee surgery Completed T & A Completed varicocele repair Complet ed 1Impression: Right rib fracture are seen. Otherwise no acute abnormalities are seen in the abdomen. 2Impression: 1. Acute lateral right fifth through ninth rib fractures. No pneumothorax. 2. No evidence for traumatic injury to the thoracic aorta 3. No acute thoracic spine fractures. 3Impression: There is no hemmorrhage, mass effect, or evidence of acute territorial ischemia by CT criteria. 4No sign of any Plaquenil toxicity to the macula. f/u one year 5BMD measured at AP Spine L1-L4 is 1.045 g/cm with a T-score of -1.5 is considered moderately low. BMD measured at Femur Neck Left is 0.840 g/cm with a T-score of -1.8 is considered moderately low. BMD measured at Femur Neck Right is 0.893 g/cm with a T-score of -1.4 is considered moderately low. BMD measured at Femur Total Mean is 0.894 g/cm with a T-score of -1.4 is considered moderately low. 610 yr hip fx risk: 19.2% 7Next Due August 2018 8There is a trace and almost certainly chronic pulmonary embolus identified within the distal right main pulmonary artery extending into the R lower lobe branches. A large pulmonary embolus was seen in this distribution on 12/21/2006 exam. No additional pulmonary emboli are identified. Cardiomegaly. 9There is trace and almost certainly chronic pulmonary embolus identified within the distal right main pulmonary artery extending into the RL lobe branches. A large pulmonary embolus was seen in the 12/31/2006 exam. Vital Signs Most recent to oldest [Reference Range]: 1 Height 167 cm (08/15/23 2:00 PM) Patient Weight 112 kg (08/15/23 2:00 PM) Body Mass Index 40.16 kg/m2 (08/15/23 2:00 PM) Heart Rate 81 bpm (08/15/23 2:00 PM) Respiratory Rate 17 br/min (08/15/23 2:00 PM) Blood Pressure 108/76mmHg (08/15/23 2:00 PM) Cuff Pulse Pressure 32 mmHg (08/15/23 2:00 PM) Social History Social History Type Response Tobacco Former smoker, Cigar ettes 1 Smoking Status Never smoked cigaret shayne Sex Male 1Quit over 20 years ago. Smoked 1/4 ppd for 30 years Outpatient Note * DO Stout Franklin J: PERFORM, SIGN, VERIFY Event Display: .Outpt Note Authored Date: [id number] Patient: CURTIS MCCOLLUM Age: 77 years Sex: Male : 1945 Associated Diagnoses: None Author: DO Stout Franklin J Visit Information Visit type: Scheduled follow-up. Chief Complaint 08/15/2023 13:59 EDT 6 mon f/u, lingering cough from sickness 1 month ago. History of Present Illness Curtis is here for a 6-month follow-up. He had a URI for about a month, and still has a lingering cough. It is improving, but still present. He had repeat bone density which we reviewed together today. Slight improvement, but still osteopenic in left femoral neck with elevated FRAX score based in chronic steroid therapy. Seasonal allergies kicking in - on antihistamine. He takes loratadine, although he has used Xyzal before as well. We talked about using Xyzal at night due to it sedative potential. Continues to follow with rheumatology for management of rheumatoid arthritis. On Plaquenil and prednisone 5 mg daily. Review of Systems Constitutional: No fever, No chills. Respiratory: No shortness of breath, No cough. Cardiovascular: Negative. Neurologic: Alert and oriented X4. Health Status Allergies: Allergic Reactions (Selected) Severity Not Documented Sulfa drugs- Unsure of reaction.. Current medications: (Selected) Prescriptions Prescribed ProAir HFA 90 mcg/inh inhalation aerosol: 2 puff, inhaled, qid, PRN: as needed for wheezing, 3 each, 3 Refill(s) Symbicort 160 mcg-4.5 mcg/inh inhalation aerosol: 2 puff, inhaled, bid, 3 each, 3 Refill(s) Xarelto 20 mg oral tablet: 1 tab, PO, qPM, 90 tab, 3 Refill(s) alendronate 70 mg oral tablet: 1 tab, PO, q7days, 4 tab, 3 Refill(s) ergocalciferol 1.25 mg (50,000 intl units) oral capsule: 1 cap, PO, q7days, for 8 doses/times, 8 cap, 0 Refill(s) losartan 100 mg oral tablet: See Instructions, take 1 tablet by mouth once daily, 90 tab, 3 Refill(s) montelukast 10 mg oral tablet: 1 tab, PO, qPM, for asthma and allergies, 30 tab, 1 Refill(s) Documented Medications Documented Claritin 10 mg oral tablet: Vitamin D3: multivitamin: 1 tab, PO, Daily. Problem list: Medical Asthma / ICD-9-CM 493.90 / Confirmed Seasonal allergies / ICD-9-CM 477.9 / Confirmed Pulmonary embolism / ICD-9-CM 415.19 / Confirmed MTHFR mutation / ICD-9-CM 270.4 / Confirmed Osteopenia / ICD-9-CM 733.90 / Confirmed OTHER AND UNSPECIFIED HYPERLIPIDEMIA / ICD-9-CM 272.4 / Confirmed URINARY FREQUENCY / ICD-9-CM 788.41 / Confirmed Rheumatoid Arthritis / ICD-9-CM 714.0 / Confirmed ELEVATED BP W/ HTN / ICD-9-CM 401.1 / Confirmed Weight disorder / SNOMED CT 257336069 / Confirmed Knee LCL sprain / SNOMED CT 63456586 / Confirmed Lumbar spine pain / SNOMED CT 310130439 / Confirmed Compression fracture of L1 lumbar vertebra / SNOMED CT 0699499520 / Confirmed Anticoagulated by anticoagulation treatment / SNOMED CT 57734280 / Confirmed Atrial fibrillation / SNOMED CT 14698320 / Confirmed Expiratory stridor / SNOMED CT 281230968 / Confirmed High risk for hip fracture / SNOMED CT 498146801 / Confirmed All Problems Asthma / ICD-9-CM 493.90 / Confirmed Seasonal allergies / ICD-9-CM 477.9 / Confirmed Pulmonary embolism / ICD-9-CM 415.19 / Confirmed MTHFR mutation / ICD-9-CM 270.4 / Confirmed Osteopenia / ICD-9-CM 733.90 / Confirmed OTHER AND UNSPECIFIED HYPERLIPIDEMIA / ICD-9-CM 272.4 / Confirmed URINARY FREQUENCY / ICD-9-CM 788.41 / Confirmed Rheumatoid Arthritis / ICD-9-CM 714.0 / Confirmed ELEVATED BP W/ HTN / ICD-9-CM 401.1 / Confirmed Weight disorder / SNOMED CT 031146037 / Confirmed Knee LCL sprain / SNOMED CT 72435960 / Confirmed Lumbar spine pain / SNOMED CT 517301527 / Confirmed Compression fracture of L1 lumbar vertebra / SNOMED CT 0757440281 / Confirmed Anticoagulated by anticoagulation treatment / SNOMED CT 01723177 / Confirmed Atrial fibrillation / SNOMED CT 96574780 / Confirmed Expiratory stridor / SNOMED CT 671481356 / Confirmed High risk for hip fracture / SNOMED CT 848192654 / Confirmed. Histories Family History: High Blood Pressure Mother Father . Social History Social & Psychosocial Habits Alcohol 01/26/2012 Use: Current Type: Beer Frequency: Daily Exercise 01/26/2012 Risk Assessment: Occasional exercise Substance Abuse 01/26/2012 Risk Assessment: Denies Substance Abuse Tobacco 01/26/2012 Risk Assessment: Denies Tobacco Use 05/26/2014 Use: Former smoker Type: Cigarettes Comment: Quit over 20 years ago. Smoked /4 ppd for 30 years - 05/26/2014 14:16 - AFUA Rios Christal . Physical Examination Vital Signs 08/15/2023 14:00 EDT Heart Rate 81 bpm Respiratory Rate 17 br/min Systolic Blood Pressure 108 mmHg Diastolic Blood Pressure 76 mmHg Cuff Pulse Pressure 32 mmHg SpO2 96 % Measurements from flowsheet : Measurements 08/15/2023 14:02 EDT Osteoporosis Screening Tool 7.00 08/15/2023 14:00 EDT Height 167 cm Height Method Standing Patient Weight 112 kg Weight 112.000 kg Weight Method Standing Scale Body Mass Index 40.16 kg/m2 Body Surface Area 2.28 m2 [place] Body Weight 63.2 kg Height/Weight Refused Height/Weight Taken General: Alert and oriented. Eye: Pupils are equal, round and reactive to light, Extraocular movements are intact, Normal conjunctiva. HENT: Normocephalic, Normal hearing. Neck: Supple, Non-tender. Respiratory: Lungs are clear to auscultation, Respirations are non-labored. Cardiovascular: Normal rate, Regular rhythm. Musculoskeletal Normal range of motion. Integumentary: Warm, Dry, [place]. Neurologic: Alert, Oriented, Normal sensory. Psychiatric: Cooperative, Appropriate mood & affect. Health Maintenance Health Maintenance Pending (in the next year) OverDue Adult Influenza Vaccine due 10/13/22 and every 1 year Medicare Annual Wellness Visit due 01/27/23 and every 1 year Due Adult COVID-19 Vaccination due 08/15/23 Unknown Frequency Adult Social Determinants of Health Screening due 08/15/23 Unknown Frequency Falls Plan of Care due 08/15/23 Unknown Frequency Hepatitis C Screening due 08/15/23 One-time only Shingles Vaccine due 08/15/23 One-time only Satisfied (in the past 1 year) Satisfied Body Mass Index on 08/15/23. Satisfied by AFUA Akins Alexandra Lipid Screening on 01/30/23. Satisfied by Contributor_system, [facility] Review / Management Results review: Lab results 08/08/2023 08:03 EDT Na 139 mmol/L K 4.7 mmol/L Cl- 105 mmol/L HCO3 30 mmol/L Anion Gap 4 mmol/L LOW BUN 16 mg/dL Cret 0.95 mg/dL eGFR CKD-EPI 82 mL/min/1.73 m2 Glu 91 mg/dL Ca 9.5 mg/dL WBC 5.93 K/uL Hgb 14.6 g/dL Hct 43.4 % RBC 4.39 M/uL LOW MCV 98.9 fL HI MCHC 33.6 g/dL MCH 33.3 pg HI RDW 12.9 % Plts 192 K/uL MPV 9.7 fL Type of Diff: AUTO Immature Gran% 0.8 % Neut% 57.6 % Lymph% 27.5 % [place]% 8.9 % Baso% 0.5 % Eos% 4.7 % Immat Gran, Abs 0.05 K/uL Neut, Abs 3.41 K/uL Lymph, Abs 1.63 K/uL [place], Abs 0.53 K/uL Baso, Abs 0.03 K/uL Eos, Abs 0.28 K/uL ALT 37 unit/L T Bili 0.8 mg/dL Alk Phos 33 unit/L LOW AST 35 unit/L Alb 3.8 g/dL Prot 6.6 g/dL HbA1c 5.5 % Estimated Average Glucose 111 mg/dL . Impression and Plan Diagnosis Rheumatoid Arthritis (USU13-TB M06.9, Discharge, Medical). Osteopenia (BQM08-HR M85.80, Discharge, Medical). Impaired fasting glucose (GIY86-UB R73.01, Discharge, Medical). ELEVATED BP W/ HTN (DBS42-CB I10, Discharge, Medical). Anticoagulated by anticoagulation treatment (FDF63-TU Z79.01, Discharge, Medical). Plan: Hypertension (chronic/stable) Blood pressure excellent BMP shows normal renal function and serum potassium continue current medications Check BMP in 6 months Other and unspecified hyperlipidemia (chronic/stable) Lipid profile prior to next visit Osteopenia with elevated FRAX score (chronic/uncertain) Continues on Fosamax; tolerating well. Fosamax 70 mg p.o. q. 7 days Repeat bone density reviewed with patient Rheumatoid arthritis (chronic/stable) Remains on 5 mg daily Continue with rheumatology Eye exam up to date. Seasonal allergic rhinitis (chronic/at goal) Claritin 10 mg daily Continue Symbicort to 1-2 puffs twice daily Chronic anticoagulation (chronic/stable) Remains on Xarelto for history of pulmonary embolism and MTHFR mutation Hemoglobin is stable; no evidence of bleeding BPH with nocturia (chronic/stable) He continues to take Flomax and Myrbetriq. Orders PowerOrders Laboratory: Lipid Profile Request (Order): Routine, 08/15/2023 14:41 EDT, Requested Timeframe 1 Week Prior to Next Visit, Fasting, Copy To: MD Mary, Raghu Davis CMP Request (Order): Routine, 08/15/2023 14:41 EDT, Requested Timeframe 1 Week Prior to Next Visit CBC w Platelets and Diff Request (Order): Routine, 08/15/2023 14:41 EDT, Requested Timeframe 1 Week Prior to Next Visit Patient Care Ambulatory: Follow Up Appointment Ambulatory (Order): In 6 Months, 6 month follow up Appointment Type In Office, 40, Follow up With DO Stout Franklin J Evaluation and Management: [id number] Outpatient Visit Est Lvl 4 (Order): 08/15/2023 14:41 EDT, FAMILY MEDICINE, ELEVATED BP W/ HTN |Impaired fasting glucose | Osteopenia | Rheumatoid Arthritis | Anticoagulated by anticoagulation treatment. Professional Services Face to Face: 25 mins Review of labs/imaging/consult: 5 mins Documentation: 5 mins Electronic Signature on File Electronically Reviewed/Signed by: Martell Stout DO Author Signature Dt/Tm:08/15/2023 02:53 PM Department of Family Medicine [facility] Patient Care team information Care Team Personnel Name: DO Stout Franklin J Position: Physician - Family Med Member Role: Primary Care Provider Address: Address: [address] [place] [address], [place] [address] Care Team Related Persons Name: CASANDRA MCCOLLUMCE Address: home [address] [place] [address], [place] [id number]"
--- OUTSIDE RECORDS SUMMARY | 2024-02-05 01:49 | External Medical Summary | Summary of Care ---
Author Name Unknown Organization [facility] Address [address] [place] [address] Phone [phone] Care Team Providers Care Automatic Folder Seamer Name Role Phone Martell Stout Primary Care Provider Reason for Visit * Reason Comments eRx-Medication Refill Encounter Details Date Type Department Care Team (Late st Contact Info) Description 11/07/2023 Refill Rheumatology [facility] [address] [place] [address] Arnel Alex PA-C [address] [place] [address] Allergies Active Allergy Reactions Criticality Noted Date Comments Pollen 07/01/2012 Hay fever, asthma attacks Sulfa Antibiotics Unknown 07/01/2012 documented as of this encounter (statuses as of 11/08/2023) Medications Medication Sig Dispensed Refills Start Date End Date Status PROAIR HFA 108 (90 BASE) MCG/ACT IN AERS 2 puffs as needed Active CENTRUM SILVER PO CHEW 1 daily Active FOLIC ACID 800 MCG PO TABS 1 daily Active XARELTO 20 MG Tablet 1 tab daily 0 08/16/2015 Active Losartan Potassium 100 MG Tablet 1 tab daily 0 08/20/2015 Active Cetirizine HCl 10 MG Oral Capsule Take 1 Capsule by mouth as needed. Active Loratadine 10 MG Oral Tablet (Claritin) As needed 01/13/2021 Active Ergocalciferol 1.25 MG (75989 UT) Oral Capsule (Vitamin D2(Drisdol)) weekly 07/29/2021 Active Symbicort 160-4.5 MCG/ACT Inhalation Aerosol 02/13/2022 Active Zoster Vac Recomb Adjuvanted 50 MCG/0.5ML Intramuscular Suspension Reconstituted (Shingrix) 0.5 mL (50 mcg). 05/27/2021 Active predniSONE 1 MG Oral Tablet [...] the morning. 90 Tablet 1 11/08/2023 Active predniSONE 5 MG Oral Tablet (Deltasone) Take 1 Tablet by mouth in the morning. In the morning.. 90 Tablet 08/10/2023 11/08/19 24 Discontinued documented as of this encounter (statuses as of 11/08/2023) Active Problems Problem Noted Date Diagnosed Date Senile osteoporosis 08/29/2021 Encounter for therapeutic drug monitoring 2021 Primary osteoarthritis of both knees 08/29/2021 Primary osteoarthritis of right ankle 08/29/2021 Rheumatoid arthritis involvi ng multiple sites with positive rheumatoid factor 09/06/2015 documented as of this encounter (statuses as of 11/08/2023) Resolved Problems Problem Noted Date Diagnosed Date Resolved Date RA (rheumatoid arthritis) 07/15/2012 documented as of this encounter (statuses as of 11/08/2023) Immunizations Name Administration Dates Next Due COVID-19 [...] on file documented as of this encounter Miscellaneous Notes * Telephone Encounter - Keshia Moon, formerly [facility] - 11/08/2023 2:44 PM EDTSigned Prescriptions: Disp Refills predniSONE 5 MG Oral Tablet (Deltasone) 90 Tab*1 Sig: Take 1 Tablet by mouth in the morning.Authorizing Provider: YUE SHOEMAKER User: KESHIA MOON E * Telephone Encounter - Keshia Moon RPh - 11/08/2023 2:40 PM EDT Rheumatology: Refill Request(s) Per review of the refill parameters, Medication was refilled Keshia Moon RPh [facility] Clinical Pharmacist Rheumatology Department 11/08/2023,2:42 PM documented in this encounter Plan of Treatment Upcoming Encounters Date Type Department Care Team (Late st Contact Info) Description 01/31/2024 10:30 AM EDT Office Visit Rheumatology [place] [address] [address] [place] [address] Yue Shoemaker CRNP [facility] [place] [address] Health Maintenance Due Date Last Done Comments Depression Screening 1957 Hepatitis C Screening 08/18/1963 DTaP,Tdap,and Td Vaccines (1 - Tdap) 1964 VITAMIN D LEVEL ONCE IN A LIFETIME-USE SMARTSET# [id number] 1985 Zoster Vaccines (1 of 2) 07/10/2016 05/15/2016 COVID-19 Vaccine ( - 2022- season) 2022 02/12/2022, 02/17/2021, 2020, Additional history exists Influenza [...] filedocumented as of this encounter Care Teams Automatic Folder Seamer Relationship Specialty Start Date End Date Martell Stout DO [address] [place] [address] PCP - General Family Medicine 07/01/12 documented as of this encounter
--- OUTSIDE RECORDS SUMMARY | 2024-02-05 01:49 | External Medical Summary | Summary of Care ---
Author Name Unknown Organization [facility] Address [address] [place] [address] Phone [phone] Care Team Providers Care Frozen Yogurt Maker Name Role Phone Martell Stout DO Primary Care Provider Reason for Visit * Reason Comments Rheum Follow Up Recheck RA Encounter Details Date Type Department Care Team (Latest Contact Info) Description 01/31/2024 10:30 AM EDT Office Visit Rheumatology [facility] [address] [place] [address] Ned Covarrubias CRNP [address] [place] [address] Rheumatoid arthritis involving multiple sites with positive rheumatoid factor (HCC)*; Encounter for long-term (current) use of medications; Primary osteoarthritis of both knees; Senile osteoporosis Allergies Active Allergy Reactions Criticality Noted Date Comments Pollen 07/01/2012 Hay fever, asthma attacks Sulfa Antibiotics Unknown 07/01/2012 documented as of this encounter (statuses as of 01/31/2024) Medications Medication Sig Dispensed Refills Start Date [...] As needed 01/13/2021 Active Ergocalciferol 1.25 MG (84937 UT) Oral Capsule (Vitamin D2(Drisdol)) weekly 07/29/2021 [...] as of this encounter (statuses as of 01/31/2024) Active Problems Problem Noted Date Diagnosed Date Senile osteoporosis 08/29/2021 Encounter for therapeutic drug monitoring 2021 Primary osteoarthritis of both knees 08/29/2021 Primary osteoarthritis of right ankle 08/29/2021 Rheumatoid arthritis involvi ng multiple sites with positive rheumatoid factor 09/06/2015 documented as of this encounter (statuses as of 01/31/2024) Resolved Problems Problem Noted Date Diagnosed Date Resolved Date RA (rheumatoid arthritis) 07/15/2012 documented as of this encounter (statuses as of 01/31/2024) Immunizations Name Administration Dates Next Due COVID-19 [...] Former Cigarettes 0.5 20 Smokeless Tobacco: Never Tobacco Cessation:Counseling Given: Not Answered Comments:Pt quit smoking 20 yrs ago Alcohol [...] on file documented as of this encounter Last Filed Vital Signs Vital Sign Reading Time Taken Comments Blood Pressure 120/86 01/31/2024 10:36 AM EDT Pulse - - Temperature 36.5 C (97.7 F) 01/31/2024 10:36 AM E DT Respiratory Rate - - Oxygen Saturation - - Inhaled Oxygen Concentration - - Weight 112.5 kg (248 lb) 01/31/2024 10:36 AM EDT Height - - Body Mass Index 37.71 04/26/2017 9:27 AM EST documented in this encounter Progress Notes * Ned Covarrubias CRNP - 01/31/2024 10:44 AM EDT Images from the original note were not included. Assessment and Plan Rheumatoid arthritis involving multiple sites with positive rheumatoid factor (HCC) Encounter for long-term (current) use of medications Primary osteoarthritis of both knees Senile osteoporosis - 25-Hydroxy Vitamin D; Future Mr. Kumar returns today for management of RA. He is doing overall well on Plaquenil 400 mg dailyand prednisone 5 mg daily. Continue current medication regimen. Most recent labs reviewed from July show no indication of medication toxicity. Continues to have yearly eye exam done. We will be due for eye exam in March. Most recent eye exam from March showed no retinal toxicity. The patient was also seen today for evaluation and treatment of osteoporosis he continues on Fosamax weekly and tolerates well. No signs or symptoms muscle strength and range of motion intact. We will continue to monitor DEXA scan every 2 years. Calcium and kidney function are normal. Patient needsvitamin-D level drawn. Lab slip printed and given to the patient to get with labs next month with PCP. I recommend continuation of a healthy diet with calcium rich foods as well as calcium and vitamin D supplement. Patient encouraged to participate in weight-bearing exercise (i.e., walking). Discussed fall avoidance measures and recommend fall prevention. Although falls are never planned, I discussed with the patient the goal of therapy to slow down / stop the process of osteoporosis from progressing. Patient voiced understanding of the discussion. Discussed the above in detail with the patient. All questions were answered. Rheumatology Synopsis: [facility] RA SYNOPSIS Date of RA Diagnosis: 06/26/12 (03/05/2023 8:00 AM) Current Treatment: HCQ (Prednisone 5 mg daily) (03/05/2023 8:00 AM) 2009 Classification Criteria: Y (03/05/2023 8:00 AM) Seropositive or seronegative: Seropositive (03/05/2023 8:00 AM) RF and/or CCP: RF+ (03/05/2023 8:00 AM) Disease activity: Controlled Patient History History of Present Illness HPI:78 year old male presented to rheumatology clinic for Rheum Follow Up (Recheck RA) Since last visit the patient continues on Plaquenil 400 mg daily, prednisone 5 mg daily. Has tried methotrexate in the past but did not feel benefit. He notes that he has felt well and has not flared. He currently has a URI (bronchitis) and is on Prednisone. Denies any interval hospitalizations or surgeries. He notes that he had an eye exam Mar, 2023 with no concerns for plaquenil toxicity. He had his DEXA scan July,. Continues on Fosamax weekly for about 2-1/2 years. Denies interval falls or fractures. Denies dental concerns or thigh pains. Continues taking adequate amounts of calcium and vitamin-D supplements daily. DEXA scan showed spine T-score -0.7 with a 3.7% improvement, femur -0.8 with a 4.1% improvement. ROS: Review of Systems was asked and the following other significant symptoms are present: URI Rheumatology History Subjective Patient's past history, medications, and allergies were reviewed. Objective Physical Exam BP 120/86 | Temp 36.5 C (97.7 F) (Infrared ) | Wt 112.5 kg (248 lb) | BMI 37.71 kg/m | BSA 2.32 m Constitutional: no acute distress HEENT: normal: normocephalic, atraumatic; no masses, tenderness, or adenopathy Eyes: sclera and conjunctiva normal Neck: supple, normal range of motion CV: normal rate and rhythm, no murmur, gallops or rub Chest: normal respiratory effort, lungs clear to auscultation and percussion Musculoskeletal: No tenderness or synovitis of hands. Minimal tenderness of the right ankle on palpation. Muscle strength 5/5 in upper and lower extremities. Structural Steel Fitter strength 5/5. Normal range of motionin upper and lower extremities as well as cervical. Extremities: no clubbing, cyanosis, or edema, otherwise grossly normal, warm, and dry Lymph Nodes: no adenopathy, no cervical adenopathy noted Skin: warm, dry, intact: Neuro: alert, oriented to person, place, and time, normal mental status exam, gait normal, sensory normal MSK/Joint exam (Homunculus) MSK Exam findings: Homunculus exam Studies: Labs and Imaging studies reviewed with pertinent findings noted below: Disease Treatment Response CDAI Scoring Patient Global: 20 / 100 Provider Global: 10 / 100 Tender (ALEXANDER-28): 0 / 28 Swollen (ALEXANDER-28): 0 / 28 CDAI: 3 CDAI (Clinical Disease Activity Index) [facility] Outcomes measures: Serial CDAI: Synopsis SmartLink 01/31/2024 10:30 07/31/2023 09:30 03/05/2023 08:00 CDAI CDAI 3 3 7.5 - Serial CDAI: - Yes - Remission: - No - controlled disease activity Currently on csDMARD: Yes Currently on Biologic DMARD: No Vaccination status: COVID: Vaccine and/or Health maintenance status Incomplete Influenza:Flu Vaccine pending for this season Pneumococcal:Vaccine Series complete Zoster:Vaccine and/or Health Maintainance Incomplete Last Hepatitis and TB testing: Hepatitis B: Not Tested, results not available Hepatitis C: Not Tested, results not available PPD or TB-Gold: Not Tested, results not available No results found for: "HBSAG", "HEPB", "HCVAB" No results found for: "TB GOLD AG NIL", "TB GOLD MITOGEN NIL", "PPD INDURATION", "PPD-OUTSIDE LAB","QUANTIFERON GOLD TB", "QUANTIFERON-TB PLUS", "QUANTIFERON-TB PLUS,1T", "QUANTIFERON-TB PLUS,4T" Wrap-Up Follow Up: Return in about 7 months (around 08/27/2024) for Clinic Visit. | For: Clinic Visit Time: I spent a total of 30-39 minutes (exact time 30 mins) on the date of service in preparation, delivery, and documentation of the care provided to Curtis Kumar excluding any time spent in the performance of separately billed services. NEHEMIAS [facility] The patient was discussed with me. I agree with the findings and plan as documented by Ned DEL CID in this note. Raghu Hernandez MD Rheumatology Department documented in this encounter Nursing Notes * Elisa Lazcano LPN - 01/31/2024 10:34 AM EDT Chief Complaint Patient presents with Rheum Follow Up Recheck RA documented in this encounter Plan of Treatment Upcoming Encounters Date Type Department Care Team (Late st Contact Info) Description 09/02/2024 10:30 AM EDT Office Visit Rheumatology [facility] [address] [facility] [place] [address] Ned Covarrubias CRNP [address] [facility] [place] [address] Scheduled Orders Name Type Priority Associated Diagnoses Orde r Schedule 25-HYDROXY VITAMIN D Lab Routine Senile osteoporosis Expected: 01/31/2024, Expires: 01/30/2025 Health Maintenance Due Date Last Done Comments Depression Screening 1957 Hepatitis C Screening 08/18/1963 DTap/Tdap Vaccines (1 - Tdap) 1964 VITAMIN D LEVEL ONCE IN A LIFETIME-USE SMARTSET# [id number] 1985 Zoster Vaccines (1 of 2) 07/10/2016 [...] Not on filedocumented as of this encounter Visit Diagnoses Diagnosis Rheumatoid arthritis involving multiple sites with positive rheumatoid factor (HCC)- Primary Encounter for long-term (current) use of medications Encounter for long-term (current) use of other medications Primary osteoarthritis of both knees Primary localized osteoarthrosis, lower leg Senile osteoporosis documented in this encounter Care Teams Frozen Yogurt Maker Relationship Specialty Start Date End Date Martell Stout DO [address] [place] [address] [place] [address] PCP - General Family Medicine 07/01/12 documented as of this encounter
--- OUTSIDE RECORDS SUMMARY | 2024-02-05 01:49 | External Medical Summary | Summary of Care ---
Author Name Unknown Organization [facility] Address [address] [place] [address] Phone [phone] Care Team Providers Care Streetcar Motorman Name Role Phone Martell Stout Primary Care Provider Encounter Details Date Type Department Care Team (Late st Contact Info) Description 2023 Orders Only [address]umatology [address] [place] [address] Ned Covarrubias CRNP [facility] [place] [address] Allergies Active Allergy Reactions Criticality Noted Date Comments Pollen 07/01/2012 Hay fever, asthma attacks Sulfa Antibiotics Unknown 07/01/2012 documented as of this encounter (statuses as of 2023) Medications Medication Sig Dispensed Refills Start Date [...] needed 0 01/13/2021 Active Ergocalciferol 1.25 MG (55813 UT) Oral Capsule (Vitamin D2(Drisdol)) weekly 0 [...] as of this encounter (statuses as of 2023) Active Problems Problem Noted Date Diagnosed Date Senile osteoporosis 08/29/2021 Encounter for therapeutic drug monitoring 2021 Primary osteoarthritis of both knees 08/29/2021 Primary osteoarthritis of right ankle 08/29/2021 Rheumatoid arthritis involvi ng multiple sites with positive rheumatoid factor 09/06/2015 documented as of this encounter (statuses as of 2023) Resolved Problems Problem Noted Date Diagnosed Date Resolved Date RA (rheumatoid arthritis) 07/15/2012 documented as of this encounter (statuses as of 2023) Immunizations Name Administration Dates Next Due COVID-19 [...] 01/31/2024 10:30 AM EDT Office Visit Rheumatology [place] [address] [place] [address] Ned Covarrubias CRNP [facility] [place] [address] Health Maintenance Due Date Last Done Comments Depression Screening 1957 Hepatitis C Screening 08/18/1963 DTaP,Tdap,and Td Vaccines (1 - Tdap) 1964 VITAMIN D LEVEL ONCE IN A LIFETIME-USE SMARTSET# [id number] 1985 Zoster Vaccines (1 of 2) 07/10/2016 05/15/2016 DXA Scan 04/25/2023 04/25/2021 Pneumococcal Vaccine: 65+ Years Completed 07/13/2014, [...] Not on filedocumented as of this encounter Procedures Procedure Name Priority Date/Time Associated Diagnosis Comments CHEMISTRY-OUTSIDE Routine 08/08/2023 documented in this encounter Results * CHEMISTRY-OUTSIDE (08/08/2023) Not all results display below - see scan for full detail OUTSIDE LAB (SEE SCANNED REPORT) Comment:SCAN INCLUDES: CMP, HGB A1C, CBCD CREATININE-OUTSID E LAB 0.95 0.70 - 1.30 MG/DL OUTSIDE LAB (SEE SCANNED REPORT) EGFR-OUTSIDE LAB 82 >60 ML/MIN OU TSIDE LAB (SEE SCANNED REPORT) POTASSIUM-OUTSIDE LAB 4.7 3.5 - 5.1 MMOL/L OUTSIDE LAB (SEE SCANNED REPORT) GLUCOSE-OUTSIDE LAB 91 74 - 106 MG/DL OUTSIDE LAB (SEE SCANNED REPORT) HOURS FASTING OUTSID E LAB (SEE SCANNED REPORT) TRIGLYCERIDES-OUT SIDE LAB OUTSIDE LAB (SEE SCANNED REPORT) CHOLESTEROL-OUTSI DE LAB OUTSIDE LAB (SEE SCANNED REPORT) HDL-OUTSIDE LAB OUTS MICHAEL LAB (SEE SCANNED REPORT) CHOL/HDL RATIO-OUTSIDE LAB OUTSIDE LA B (SEE SCANNED REPORT) LDL (CALCULATED)-OUTS MICHAEL LAB OUTSIDE LAB (SEE SCANNED REPORT) LDL (DIRECT MEASURE)-OUTSIDE LAB OUTSIDE LAB (SEE SCANNED REPORT) HEMOGLOBIN, [id number]-[id number] LAB 5.5 <5.7 % OUTSIDE LAB (SEE SCANNED REPORT) PHOSPHORUS-OUTSID E LAB OUTSIDE LAB (SEE SCANNED REPORT) PTH-OUTSIDE LAB OUTS MICHAEL LAB (SEE SCANNED REPORT) MICROALBUMIN RATIO-OUTSIDE LAB OUTSIDE LA B (SEE SCANNED REPORT) PROTEIN, UA-OUTSIDE LAB OUTSIDE LAB (SEE SCANNED REPORT) HGB 14.6 13.0 - 17.0 G/DL OUTSIDE LAB (SEE SCANNED REPORT) 08/08/2023 Martell Stout DO LABORATORY OUTSIDE LAB (SEE SCANNED REPORT) documented in this encounter Care Teams Streetcar Motorman Relationship Specialty Start Date End Date Martell Stout DO [address] [place] [address] PCP - General Family Medicine 07/01/12 documented as of this encounter
--- OUTSIDE RECORDS SUMMARY | 2024-02-05 01:49 | External Medical Summary | Continuity of Care Document ---
Author Name Unknown Organization [facility] [facility] [id number] [place] [phone] Care Team Providers Care Fisherman Helper Name Role Phone Martell Stout Primary Care Physician [phone] Encounter [facility]NBR [id number] Date(s): 09/14/23 - 09/14/23 [facility] [address] [address] [phone] Encounter Diagnosis Asthma exacerbation(Discharge Diagnosis) - 09/14/23 Discharge Disposition: Home or Self Care Attending Physician: MD Quinones Dongsheng Allergies, Adverse Reactions, Alerts Substance Criticality Severity Reaction Reaction Severity Status sulfa drugs unsure of reaction Active Assessment and Plan Extracted from: Title:Office Visit Note Author:MD Quinones Dongsh eng Date:09/14/23 1.Asthma exacerbation STATUS: Chronic stable: Chronic uncontrolled: Acute uncomplicated: Acute illness with systemic symptoms: Undiagnosed new problems with uncertain prognosis: Chronic illnesses with exacerbation, progression, or side effects of treatment: x 1 acute complicated injury: DATA: Review of prior external note(s) from each unique source: Review of the result(s) of each unique test: Ordering of each unique test: Assessment requiring independent historian(s): GOAL: Reduce symptoms PLAN: continue symbicort. increase albuterol to q4h prn. start augmentin. No oral steroid for now. fluid. CXR if not better in 2-3 days. call and f/u prn Immunizations Given and Recorded Vaccine Date Status [...] 70 mg oral tablet Start: 05/01/23 12:50:00 PM EST, 1 tab, PO, q7days, Disp# 4 tab, Refills: 3, [id number] Start Date: 05/01/23 Status: Ordered Augmentin 875 mg-125 mg oral tablet Start: 09/14/23 8:45:00 AM EDT, amoxicillin 1 tab, PO, q12h, Disp# 14, with food or milk, Pharmacy: [facility]/pharmacy #[id number] Start Date: 09/14/23 Stop Date: 09/21/23 Status: Ordered Claritin 10 mg oral tablet Start: 01/13/21 9:18:00 AM EDT Start Date: 01/13/21 Status: Ordered ergocalciferol 1.25 mg (50,000 intl units) oral capsule Start: 07/29/21 9:19:00 AM EDT, 1 cap, PO, q7days, Disp# 8 cap, Refills: 0, [facility] Start Date: 07/29/21 Status: Ordered losartan 100 mg oral tablet Start: 01/19/23 1:36:00 PM EDT, See Instructions, Disp# 90 tab, Refills: 3, take 1 tablet by mouth once daily, [facility][id number] Start Date: 01/19/23 Status: Ordered montelukast 10 mg oral tablet Start: 10/04/22 11:06:00 AM EDT, 1 tab, PO, qPM, Disp# 30 tab, Refills: 1, for asthma and allergies,[facility] #[id number] Start Date: 10/04/22 Status: Ordered multivitamin Start: 02/13/18 8:17:00 AM EDT, 1 tab, PO, Daily Start Date: 02/13/18 Status: Ordered ProAir HFA 90 mcg/inh inhalation aerosol Start: 05/27/21 9:40:00 AM EST, 2 puff, inhaled, qid, Disp# 3 each, Refills: 3, PRN: as needed for wheezing, Pharmacy: [facility] Start Date: 05/27/21 Status: Ordered Symbicort 160 mcg-4.5 mcg/inh inhalation aerosol Start: 02/07/23 1:32:00 PM EDT, 2 puff, inhaled, bid, Disp# 3 each, Refills: 3, Note to Pharmacy: note change in instructions, Pharmacy: [facility] Start Date: 02/07/23 Status: Ordered Vitamin D3 Start: 01/26/20 8:27:00 AM EDT Start Date: 01/26/20 Status: Ordered Xarelto 20 mg oral tablet Start: 09/26/22 12:36:00 PM EDT, 1 tab, PO, qPM, Disp# 90 tab, Refills: 3, Pharmacy: [facility] Start Date: 09/26/22 Status: Ordered Mental Status 09/14/23 Barriers to Learning one year None evide nt Mandatory Health Literacy Documentation Yes Health Literacy Communication Barriers N ever Primary Language American Problem List Condition Confirmation Course Effective Dates Status H ealth Status Informant Anticoagulated by anticoagulation treatment Confirmed Active Asthma Confirmed Active High risk for hip fracture Confirmed Active Atrial fibrillation Confirmed Active Compression fracture of L1 lumbar vertebra Confirmed Active ELEVATED BP W/ HTN Confirmed Active Expiratory stridor Confirmed Active Hyperlipidemia, unspecified Confirmed 08/15/23 Active MTHFR mutation Confirmed Active Osteopenia Confirmed Active OTHER AND UNSPECIFIED HYPERLIPIDEMIA Confirmed Active Lumbar spine pain Confirmed Active Pulmonary embolism Confirmed Active Rheumatoid Arthritis Confirmed Active Seasonal allergies Confirmed Active Knee LCL sprain Confirmed Active URINARY FREQUENCY Confirmed Active Weight disorder Confirmed Active Diagnosis Diagnosis Type Effective Dates Health Status Clinical Service Informant Asthma exacerbation Discharge Diagnosis 09/14/23 Non-Specified Procedures Procedure Date Related Diagnosis Body [...] oldest [Reference Range]: 1 Height 167 cm (5/31/24 8:33 AM) Patient Weight 111.6 kg (09/14/23 8:33 AM) Body Mass Index 40.02 kg/m2 (09/14/23 8:33 AM) Temperature [36.5-37.9 DegC] 36.9 DegC (09/14/23 8:33 AM) Heart Rate 79 bpm (09/14/23 8:33 AM) Respiratory Rate 12 br/min (09/14/23 8:33 AM) Blood Pressure 128/80mmHg (09/14/23 8:33 AM) Cuff Pulse Pressure 48 mmHg (09/14/23 8:33 AM) Social History Social History Type Response Tobacco Former smoker, Cigar ettes 1 Smoking Status Former Smoker, quit > 1 yr Sex Male 1Quit over 20 years ago. Smoked 1/4 ppd for 30 years FCM Outpt Note * MD Joni, Angle: PERFORM Event Display: FCM Outpt Note Authored Date: [id number] Chief Complaint productive cough sinus pressure and drainage x 1 month states symptoms come and go. History of Present Illness cough: x 1 mo. was better then worse x a wk. yellow sputum. worse at night. wheezing. tired. not sleeping well. chills. sinus pressure. no travel. no pain or swelling on leg. 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 on xarelto. Review of Systems No fever. No other respiratory symptoms. No chest pain. No nausea/vomiting. No abdominal pain. No change with bowels. No urinary symptoms. No rash. No bleeding. No joint pain. Other systems reviewed and are neg. Physical Exam Vitals & Measurements T:36.9C HR:79(Monitored) RR:12 BP:128/80 SpO2:97% HT:167cm WT:111.600kg(Dosing) WT:111.6kg BMI:40.02 PHQ2 Data(Data Documented on:09/14/2023 08:33) Emotional health assessment NEGATIVE General: No acute distress. Nontoxic. Head:Normocephalic, Atraumatic. Eyes:Pupils are equal, round Normal conjunctiva. Sinuses:No tenderness to percussion. Neck:Supple, Non-tender, No thyromegaly, No jugular venous distention, No lymphadenopathy Respiratory:Lungs are clear to auscultation, Respirations non-labored, Breath sounds equal MARICHUY. Cardiovascular:Normal rate, Regular rhythm, No murmur, Rubs, gallops. Gastrointestinal:Soft, Non-tender, Non-distended, Normal bowel sounds. Musculoskeletal:no pitting edema, no calf tenderness Neurologic:Alert, Oriented, No focal deficits. Psychiatric:Cooperative, Appropriate mood & affect. Assessment/Plan 1.Asthma exacerbation STATUS: Chronic stable: Chronic uncontrolled: Acute uncomplicated: Acute illness with systemic symptoms: Undiagnosed new problems with uncertain prognosis: Chronic illnesses with exacerbation, progression, or side effects of treatment: x 1 acute complicated injury: DATA: Review of prior external note(s) from each unique source: Review of the result(s) of each unique test: Ordering of each unique test: Assessment requiring independent historian(s): GOAL: Reduce symptoms PLAN: continue symbicort. increase albuterol to q4h prn. start augmentin. No oral steroid fornow. fluid. CXR if not better in 2-3 days. call and f/u prn Problem List/Past Medical History Ongoing Anticoagulated by anticoagulation treatment Asthma Atrial fibrillation Compression fracture of L1 lumbar vertebra ELEVATED BP W/ HTN Expiratory stridor High risk for hip fracture Hyperlipidemia, unspecified Knee LCL sprain Lumbar spine pain MTHFR mutation Osteopenia OTHER AND UNSPECIFIED HYPERLIPIDEMIA Pulmonary embolism Rheumatoid Arthritis Seasonal allergies URINARY FREQUENCY Weight disorder Resolved Impaired fasting glucose Procedure/Surgical History CT of chest without contrast| Service Date: 2CT of head without contrast| Service Date: 2Computed tomography (CT) of abdomen and pelvis with contrast| Service Date: 04/10/2022Eye examination| Service Date: 08/04/2019Lumbar spine DEXA scan T score| Service Date: 03/10/2019 Bone density scan| Service Date: 09/04/2016 knee surgery varicocele repair T & A Chest CTACT of chest Medications albuterol(ProAir HFA 90 mcg/inh inhalation aerosol), 2 puff, inhaled, qid, PRN, 3 refills alendronate(alendronate 70 mg oral tablet), 1 tab, PO, q7days amoxicillin-clavulanate(Augmentin 875 mg-125 mg oral tablet), 1 tab, PO, q12h budesonide-formoterol(Symbicort 160 mcg-4.5 mcg/inh inhalation aerosol), 2 puff, inhaled, bid, 3 refills cholecalciferol(Vitamin D3) ergocalciferol(ergocalciferol 1.25 mg (50,000 intl units) oral capsule), [address] Int_Unit= 1 cap, PO,q7days loratadine(Claritin 10 mg oral tablet) losartan(losartan 100 mg oral tablet), See Instructions, 3 refills montelukast(montelukast 10 mg oral tablet), 10 mg= 1 tab, PO, qPM, 1 refills multivitamin, 1 tab, PO, Daily rivaroxaban(Xarelto 20 mg oral tablet), 20 mg= 1 tab, PO, qPM, 3 refills Allergies sulfa drugsunsure of reaction Social History Smoking Status Former Smoker, quit > 1 yr Alcohol Use:Current Type:Beer Frequency:Daily Exercise - Occasional exercise Substance Abuse - Denies Substance Abuse Tobacco - Denies Tobacco Use Use:Former smoker Type:Cigarettes - Comments: Quit over 20 years ago. Smoked 1/4 ppd for 30 years Family History High Blood Pressure: Mother and Father. Health Status Family Member(s) Immunizations Vaccine Date Status SARS-CoV-2 mRNA-1273 (6y+ bivalent) 02/12/2022 Recorded influenza virus vaccine, inactivated 01/27/2022 Given tetanus/diphtheria/pertuss, acel (Tdap) 05/27/2021 Given SARS-CoV-2 (COVID-19) mRNA-1273 vaccine 02/17/2021 Recorded Comments : 2021-05-27: Historical information-source unspecified influenza virus vaccine, inactivated 01/19/2021 Given SARS-CoV-2 (COVID-19) mRNA-1273 vaccine 2020 Recorded Comments : 2022-01-27: Historical information-source unspecified SARS-CoV-2 (COVID-19) mRNA-1273 vaccine 06/10/2020 Recorded SARS-CoV-2 (COVID-19) mRNA-1273 vaccine 05/13/2020 Recorded influenza virus vaccine, inactivated 01/15/2019 Given influenza virus vaccine, inactivated 02/09/2017 Given zoster vaccine live 05/15/2016 Recorded influenza virus vaccine, inactivated 02/02/2016 Given influenza virus vaccine, inactivated 02/03/2015 Given pneumococcal 13-valent vaccine 07/13/2014 Given influenza virus vaccine, inactivated 01/12/2014 Given pneumococcal 23-valent vaccine 07/15/2012 Recorded influenza virus vaccine, inactivated 03/15/2012 Given Recommendations Health Maintenance Pending(in the next year) OverDue Adult Influenza Vaccine due10/13/22and every 1year Medicare Annual Wellness Visit due01/27/23and every 1year Due Adult COVID-19 Vaccination due09/14/23Unknown Frequency Adult Social Determinants of Health Screening due09/14/23Unknown Frequency Falls Plan of Care due09/14/23Unknown Frequency Hepatitis C Screening due09/14/23One-time only Shingles Vaccine due09/14/23One-time only Satisfied(in the past 1 year) Satisfied Body Mass Index on09/14/23.Satisfied by Corneal, STOCK HANDLERMariano Lipid Screening on01/30/23.Satisfied by Contributor_system, [employer] Electronic Signature on File Electronically Reviewed/Signed by: Angle Quinones MD Author Signature Dt/Tm:09/14/2023 08:48 AM Department of Family Medicine DJ Patient Care team information Care Team Personnel Name: DO Stout Franklin J Position: Physician - Family Med Member Role: Primary Care Provider Address: Address: [address] [place] [address] [address] [place] [address] Care Team Related Persons Name: MITRA MCCOLLUM Address: home [address] [place] [address], [place] [id number]"
--- OUTSIDE RECORDS SUMMARY | 2024-02-05 01:49 | External Medical Summary | Continuity of Care Document ---
Author Name Unknown Organization [address] Address [address] [place] [address] [address] [place] [place] [phone] Care Team Providers Care Junior Software Engineer Name Role Phone Martell Stout Primary Care Physician [phone] Encounter [facility]NBR [id number] Date(s): 01/21/24 - 01/21/[address] [facility] [address], [address] [place] [address] [phone] Encounter Diagnosis Asthma exacerbation(Discharge Diagnosis) - 01/21/24 Discharge Disposition: Home or Self Care Attending Physician: DO Naik Kristen M Allergies, Adverse Reactions, Alerts Substance Criticality Severity Reaction Reaction Severity Status sulfa drugs unsure of reaction Active Assessment and Plan Extracted from: Title:Office Visit Note Author:DO Rey Nicho las Date:01/21/24 1.Asthma exacerbation Acute, uncomplicated illness/injury Goal: resolution Plan: prednisone 50mg PO x 5 days, azithromycin x5 days, encourage more frequent use of albuterol. RTO if not improving or worse Immunizations Given and Recorded Vaccine Date Status [...] 2Result Comment: 2022-01-27: Historical information-source unspecified Medications Albuterol (Eqv-ProAir HFA) 90 mcg/inh inhalation aerosol Start: 11/20/23 8:20:00 AM EDT, 2 puff, inhaled, qid, Disp# 25.5 g, Refills: 0, PRN: NEEDED FOR WHEEZING, Pharmacy: [facility] Start Date: 11/20/23 Status: Ordered alendronate 70 mg oral tablet Start: 05/01/23 12:50:00 PM EST, 1 tab, PO, q7days, Disp# 4 tab, Refills: 3, [id number] Start Date: 05/01/23 Status: Ordered Augmentin 875 mg-125 mg oral tablet Start: 09/14/23 8:45:00 AM EDT, amoxicillin 1 tab, PO, q12h, Disp# 14, with food or milk, Pharmacy: [facility]/pharmacy #[id number] Start Date: 09/14/23 Stop Date: 09/21/23 Status: Ordered Azithromycin 5 Day Dose Pack 250 mg oral tablet Start: 01/21/24 2:01:00 PM EDT, See Instructions, Disp# 6 tab, as directed on package labeling, Pharmacy: [facility]/pharmacy #[id number] Start Date: 01/21/24 Status: Ordered Claritin 10 mg oral tablet Start: 01/13/21 9:18:00 AM EDT Start Date: 01/13/21 Status: Ordered ergocalciferol 1.25 mg (50,000 intl units) oral capsule Start: 07/29/21 9:19:00 AM EDT, 1 cap, PO, q7days, Disp# 8 cap, Refills: 0, Pharmacy: [id number] Start Date: 07/29/21 Status: Ordered losartan 100 mg oral tablet Start: 01/18/24 4:50:00 PM EDT, 1 tab, PO, Daily, Disp# 90 tab, Refills: 3, Pharmacy: [id number] Start Date: 01/18/24 Status: Ordered montelukast 10 mg oral tablet Start: 10/04/22 11:06:00 AM EDT, 1 tab, PO, qPM, Disp# 30 tab, Refills: 1, for asthma and allergies,Pharmacy: [facility] #[id number] Start Date: 10/04/22 Status: Ordered multivitamin Start: 02/13/18 8:17:00 AM EDT, 1 tab, PO, Daily Start Date: 02/13/18 Status: Ordered predniSONE 50 mg oral tablet Start: 01/21/24 2:00:00 PM EDT, 1 tab, PO, Daily, Disp# 5 tab, Pharmacy: [facility]/pharmacy #[id number] Start Date: 01/21/24 Status: Ordered Symbicort 160 mcg-4.5 mcg/inh inhalation aerosol Start: 02/07/23 1:32:00 PM EDT, 2 puff, inhaled, bid, Disp# 3 each, Refills: 3, Note to Pharmacy: note change in instructions, Pharmacy: [facility] Start Date: 02/07/23 Status: Ordered Vitamin D3 Start: 01/26/20 8:27:00 AM EDT Start Date: 01/26/20 Status: Ordered Xarelto 20 mg oral tablet Start: 09/24/23 4:41:00 PM EDT, 1 tab, PO, qPM, Disp# 90 tab, Refills: 3, Pharmacy: [facility] Start Date: 09/24/23 Status: Ordered Mental Status 01/21/24 Barriers to Learning one year None evide nt Mandatory Health Literacy Documentation Yes Health Literacy Communication Barriers N ever Primary Language Kuwaiti Problem List Condition Confirmation Course Effective Dates [...] Clinical Service Informant Asthma exacerbation Discharge Diagnosis 01/21/24 Non-Specified Procedures Procedure Date Related Diagnosis Body [...] oldest [Reference Range]: 1 Height 167 cm (01/21/24 1:39 PM) Patient Weight 111.8 kg (01/21/24 1:39 PM) Body Mass Index 40.09 kg/m2 (01/21/24 1:39 PM) Temperature [36.5-37.9 DegC] 36.0 DegC *LOW* (01/21/24 1:39 PM) Heart Rate 119 bpm (01/21/24 1:39 PM) Respiratory Rate 16 br/min (01/21/24 1:39 PM) Blood Pressure 110/76mmHg (01/21/24 1:39 PM) Cuff Pulse Pressure 34 mmHg (01/21/24 1:39 PM) Social History Social History Type Response Tobacco Former smoker, Cigar ettes 1 Smoking Status Never smoked cigaret shayne Sex Male Sex Representation Male (finding) 1Quit over 20 years ago. Smoked 1/4 ppd for 30 years FCM Outpt Note * DO Naik Kristen M: MODIFY DO Naik Kristen M: MODIFY Event Display: FCM Outpt Note Authored Date: [id number] Chief Complaint ongoing cough for last 3 days- getting worse- took sudafed/claritin/decongestant 12 hours appart. History of Present Illness 78 yo male here with 3 days of illness. Cough, SOB,PND.History ofasthmawith near annualexacerbationaround this time of year due toallergies.UsesSymbicort, montelukast, and albuterol. Has triedOTC cold medicationwithoutsignificantrelief.Denies fevers chills. Physical Exam Vitals & Measurements T:36.0C HR:119(Monitored) RR:16 BP:110/76 SpO2:97% HT:167cm WT:111.800kg(Dosing) WT:111.8kg BMI:40.09 PHQ2 Data(Data Documented on:01/21/2024 13:39) Emotional health assessment NEGATIVE Gen: well appearing male in NAD HEENT: AT NC CV: clinically well perfused Resp: good air entry bilaterally, +end expiratory wheeze Abd: non-distended MSK: no obvious deformities Skin: no bruising or rashes noted Psych: appropriate mood and affect Neuro: alert and oriented Assessment/Plan 1.Asthma exacerbation Acute, uncomplicated illness/injury Goal: resolution Plan: prednisone 50mg PO x 5 days, azithromycin x5 days, encourage more frequent use of albuterol. RTO ifnot improving or worse Attestation I have reviewed and discussed the history and physical findings with the resident and agree with the above impression and plan Problem List/Past Medical History Ongoing Anticoagulated by [...] CT of chest without contrast| Service Date: 04/10/2022T of head without contrast| Service Date: 2Computed tomography (CT) of abdomen and pelvis with contrast| Service Date: 04/10/2022Eye examination| Service Date: 08/04/2019Lumbar spine DEXA scan T score| Service Date: 03/10/2019 Bone density scan| Service Date: 09/04/2016 knee surgery varicocele repair T & A Chest CTACT of chest Medications albuterol(Albuterol (Eqv-ProAir HFA) 90 mcg/inh inhalation aerosol), 2 puff, inhaled, qid, PRN alendronate(alendronate 70 mg oral tablet), 1 tab, PO, q7days amoxicillin-clavulanate(Augmentin 875 mg-125 mg oral tablet), 1 tab, PO, q12h azithromycin(Azithromycin 5 Day Dose Pack 250 mg oral tablet), See Instructions budesonide-formoterol(Symbicort 160 mcg-4.5 mcg/inh inhalation aerosol), 2 puff, inhaled, bid, 3 refills cholecalciferol(Vitamin D3) ergocalciferol(ergocalciferol 1.25 mg (50,000 intl units) oral capsule), [id number] Int_Unit= 1 cap, PO,q7days loratadine(Claritin 10 mg oral tablet) losartan(losartan 100 mg oral tablet), 1 tab, PO, Daily montelukast(montelukast 10 mg oral tablet), 10 mg= 1 tab, PO, qPM, 1 refills multivitamin, 1 tab, PO, Daily predniSONE(predniSONE 50 mg oral tablet), 50 mg= 1 tab, PO, Daily rivaroxaban(Xarelto 20 mg oral tablet), 1 tab, PO, qPM Allergies sulfa drugsunsure of reaction Social History Smoking Status Never smoked cigarettes Alcohol Use:Current Type:Beer Frequency:Daily Exercise - Occasional [...] Health Maintenance Pending(in the next year) OverDue Medicare Annual Wellness Visit due01/27/23and every 1year Adult Influenza Vaccine due10/14/23and every 1year Due Adult COVID-19 Vaccination due01/21/24Unknown Frequency Adult Social Determinants of Health Screening due01/21/24Unknown Frequency Falls Plan of Care due01/21/24Unknown Frequency Hepatitis C Screening due01/21/24One-time only Shingles Vaccine due01/21/24One-time only Satisfied(in the past 1 year) Satisfied Body Mass Index on01/21/24.Satisfied by [facility] Marshall Angela Lipid Screening on01/30/23.Satisfied by Contributor_system, [employer] Electronic Signature on File Electronically Reviewed/Signed by: Rajesh Rey DO Author Signature Dt/Tm:01/21/2024 02:07 PM Resident Department of Family Medicine Electronically Reviewed/Signed by: Kimberly Naik DO Cosigner Signature Dt/Tm: 01/21/2024 05:07 PM Department of Family Medicine [place] Patient Care team information Care Team Personnel Name: DO Stout Franklin J Position: Physician - Family Med Member Role: Primary Care Provider Address: [address] [place] [address] Care Team Related Persons Name: MITRA MCCOLLUM"
--- OUTSIDE RECORDS SUMMARY | 2024-02-05 01:49 | External Medical Summary | Summary of Care ---
Author Name Unknown Organization [facility] Address [address] [place] [address] Phone [phone] Care Team Providers Care Director Data Name Role Phone Martell Stout DO Primary Care Provider Reason for Visit * Reason Onset Date Comments Medication Refill 08/10/2023 Encounter Details Date Type Department Care Team (Late st Contact Info) Description 08/10/2023 Refill Rheumatology [facility] [address] [place] [address] Ned Covarrubias CRNP [address] [place] [address] Allergies Active Allergy Reactions Criticality Noted Date Comments Pollen 07/01/2012 Hay fever, asthma attacks Sulfa Antibiotics Unknown 07/01/2012 documented as of this encounter (statuses as of 08/10/2023) Medications Medication Sig Dispensed Refills Start Date [...] needed 0 01/13/2021 Active Ergocalciferol 1.25 MG (43418 UT) Oral Capsule (Vitamin D2(isdol)) weekly 0 07/29/2021 Active Symbicort 160-4.5 MCG/ACT [...] Active predniSONE 5 MG Oral Tablet (Deltasone) take 1 tablet by mouth every morning 90 Tablet 0 04/13/2023 4 Discontinue d(Refill) Hydroxychloroquine Sulfate 200 MG Oral Tablet (Plaquenil) Take 2 Tablets by mouth daily. 180 Tablet 3 08/02/2023 4 Discontinue d(Refill) documented as of this encounter (statuses as of 08/10/2023) Active Problems Problem Noted Date Diagnosed Date Senile osteoporosis 08/29/2021 Encounter for therapeutic drug monitoring 2021 Primary osteoarthritis of both knees 08/29/2021 Primary osteoarthritis of right ankle 08/29/2021 Rheumatoid arthritis involvi ng multiple sites with positive rheumatoid factor 09/06/2015 documented as of this encounter (statuses as of 08/10/2023) Resolved Problems Problem Noted Date Diagnosed Date Resolved Date RA (rheumatoid arthritis) 07/15/2012 documented as of this encounter (statuses as of 08/10/2023) Immunizations Name Administration Dates Next Due COVID-19 [...] encounter Miscellaneous Notes * Telephone Encounter - Arnel Santos PA-C - 08/10/2023 2:12 PM EDTSigned Prescriptions: Disp Refills predniSONE 5 MG Oral Tablet (Deltasone) 90 Tab*0 Sig: Take 1 Tablet by mouth in the morning. In the morning..Authorizing Provider: ARNEL SANTOS Hydroxychloroquine Sulfate 200 MG Oral Tab*180 Ta*3 Sig: Take 2 Tablets by mouth daily.Authorizing Provider: ARNEL SANTOS * Telephone Encounter - Noelle Mcduffie LPN - 08/10/2023 1:57 PM EDTPending Prescriptions: Disp Refills predniSONE 5 MG Oral Tablet (Deltasone) 90 Tab*0 Sig: Take 1 Tablet by mouth in the morning. In the morning.. Hydroxychloroquine Sulfate 200 MG Oral Tab*180 Ta*3 Sig: Take 2 Tablets by mouth daily. * Telephone Encounter - Rebecca Rolon CPhT - 08/10/2023 11:17 AM EDT Did you pend patient's preferred pharmacy and medication before forwarding?yes Pharmacy: [id number] [address] [facility] Changing pharmacy Pending Prescriptions: Disp Refills predniSONE 5 MG Oral Tablet (Deltasone) 90 Tab*0 Sig: Take 1 Tablet by mouth in the morning. In the morning.. Hydroxychloroquine Sulfate 200 MG Oral Ta*180 Ta*3 Sig: Take 2 Tablets by mouth daily. Last Visit: 07/31/2023 (in office), Visit date not found (telemedicine) Next Visit: 01/31/2024 If no future appointments scheduled, and last appointment is greater than a year ago, please schedule patient for a follow-up appointment Last date the medication was ordered: 04.13.23, 08.02.23 Is this request for a controlled substance?No Urine Drug Screen:No results found for this or any previous visit. Patient Phone Numbers Labs: Lab Results Component Value Date/Time CREAT 0.89 01/12/2021 12:00 AM POTASSIUM 4.6 01/12/2021 12:00 AM LDLCALC 91 01/12/2021 12:00 AM ALT 38 05/25/2020 12:00 AM HGBA1C 5.1 01/12/2021 12:00 AM documented in this encounter Plan of Treatment Upcoming Encounters Date Type Department Care Team (Late st Contact Info) Description 01/31/2024 10:30 AM EDT Office Visit Rheumatology [facility] [address] [facility] [place] [address] Ned Covarrubias CRNP [address] [facility] [place] [address] Health Maintenance Due Date Last Done Comments Depression Screening 1957 Hepatitis C Screening 08/18/1963 DTaP,Tdap,and Td Vaccines (1 - Tdap) 1964 VITAMIN D LEVEL ONCE IN A LIFETIME-USE SMARTSET# 61070 1985 Zoster Vaccines (1 of 2) 07/10/2016 [...] filedocumented as of this encounter Care Teams Director Data Relationship Specialty Start Date End Date Martell Stout DO [address] [place] [address] PCP - General Family Medicine 07/01/12 documented as of this encounter
--- OUTSIDE RECORDS SUMMARY | 2024-02-05 01:49 | External Medical Summary | Continuity of Care Document ---
Author Name Unknown Organization [facility] [address] [facility] 2 Address [address] [id number] Care Team Providers Care Ornamental Metal Worker Helper Name Role Phone Martell Stout Primary Care Physician [phone] Encounter [facility] [id number] Date(s): 08/21/23 - 08/21/23 [facility] [address] [place] [address] [phone] Encounter Diagnosis Inflamed seborrheic keratosis(Discharge Diagnosis) - 08/21/23 Seborrheic keratoses(Discharge Diagnosis) - 08/21/23 History of squamous cell carcinoma of skin(Discharge Diagnosis) - 08/21/23 Discharge Disposition: Home or Self Care Attending Physician: MD Harris Thomas A Referring Physician: MD Harris Thomas A Allergies, Adverse Reactions, Alerts Substance Reaction Severity Status sulfa drugs unsure of reaction Active Assessment and Plan Extracted from: Title:Clinical Document Author:MD Steven, Kaden Alvarez Date:08/21/23 OUTPATIENT NOTE Name: CHUN CURTIS L Patient Number:1 [id number] : 1945 Date of Service: 08/21/2023 _ Curtis Chun returns for reevaluation. He notes an irritated papule present on the neck which rubs on his shirt collar would like to have this removed. It appears as a sessile papule 5 mm in greatest dimension consistent with an inflamed seborrheic keratosis. It was treated with electrodesiccation. No pathology was obtained. 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 This appears clear of recurrence. He notes no other new or suspicious lesions. Review of systems medications allergies as noted on the chart. The patient is in good health. He plans to plant a garden and is doing some fishing in the area. He sold his boat in the [place] as it was getting too hard for his to get into it and trips there were getting expensive. Examination reveals pleasant well-nourished white male type II skin alert and oriented x 3 with normal mood and affect. Examination of the scalp, head, neck, back, chest, arms, hands, fingers, abdominal area reveals numerous seborrheic keratoses on the back and chest which do not appear atypical, lentigines in sun exposed areas on the face and arms which do not appear atypical and is otherwise unremarkable. The patient will return in 1 year for reevaluation. Immunizations Given and Recorded Vaccine Date Status [...] q7days, Disp# 4 tab, Refills: 3, Pharmacy: [facility] #[id number] Start Date: 05/01/23 Status: Ordered Claritin 10 mg oral tablet Start: 01/13/21 9:18:00 EDT Start Date: 01/13/21 Status: Ordered ergocalciferol 1.25 mg (50,000 intl units) oral capsule Start: 07/29/21 9:19:00 EDT, 1 cap, PO, q7days, Disp# 8 cap, Refills: 0, Pharmacy: [address] Start Date: 07/29/21 Status: Ordered losartan 100 mg oral tablet Start: 01/19/23 13:36:00 EDT, See Instructions, Disp# 90 tab, Refills: 3, take 1 tablet by mouth once daily, Pharmacy: [facility] #[id number] Start Date: 01/19/23 Status: Ordered montelukast 10 mg oral tablet Start: 10/04/22 11:06:00 EDT, 1 tab, PO, qPM, Disp# 30 tab, Refills: 1, for asthma and allergies, Pharmacy: [facility] #[id number] Start Date: 10/04/22 Status: Ordered multivitamin Start: 02/13/18 8:17:00 EDT, 1 tab, PO, Daily Start Date: 02/13/18 Status: Ordered ProAir HFA 90 mcg/inh inhalation aerosol Start: 05/27/21 9:40:00 EST, 2 puff, inhaled, qid, Disp# 3 each, Refills: 3, PRN: as needed for wheezing, Pharmacy: [facility] Start Date: 05/27/21 Status: Ordered Symbicort 160 mcg-4.5 mcg/inh inhalation aerosol Start: 02/07/23 13:32:00 EDT, 2 puff, inhaled, bid, Disp# 3 each, Refills: 3, Note to Pharmacy: note change in instructions, Pharmacy: [facility] Start Date: 02/07/23 Status: Ordered Vitamin D3 Start: 01/26/20 8:27:00 EDT Start Date: 01/26/20 Status: Ordered Xarelto 20 mg oral tablet Start: 09/26/22 12:36:00 EDT, 1 tab, PO, qPM, Disp# 90 tab, Refills: 3, Pharmacy: [facility] Start Date: 09/26/22 Status: Ordered Problem List Condition Confirmation Course Effective Dates [...] Effective Dates Health Status Clinical Service Informant Inflamed seborrheic keratosis Discharge Diagnosis 08/21/23 Seborrheic keratoses Discharge Diagnosis 08/21/23 History of squamous cell carcinoma of skin Discharge Diagnosis 08/21/23 Procedures Procedure Date Related Diagnosis Body Site [...] embolus was seen in the 12/31/2006 exam. Social History Social History Type Response Tobacco Former smoker, Cigar ettes 1 Smoking Status Former Smoker, quit > 1 yr Sex Male 1Quit over 20 years ago. Smoked 1/4 ppd for 30 years Outpatient Note * MD Steven, Alex Alvarez: PERFORM Event Display: .Outpt Note Authored Date: [id number] OUTPATIENT NOTE Name: CURTIS MCCOLLUM Patient Number:1 [id number] : 1945 Date of Service: 08/21/2023 _ Curtis Mccollum returns for reevaluation. He notes an irritated papule present on the neck which rubson his shirt collar would like to have this removed. It appears as a sessile papule 5 mm in greatest dimension consistent with an inflamed seborrheic keratosis. It was treated with electrodesiccation. No pathology was obtained. 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 This appears clear of recurrence. He notes no other new or suspicious lesions. Review of systems medications allergies as noted on the chart. The patient is in good health. He plans to plant a garden and is doing some fishing in the area. He sold his boat in the [place] asit was getting too hard for his to get into it and trips there were getting expensive. Examination reveals pleasant well-nourished white male type II skin alert and oriented x 3 with normal mood and affect. Examination of the scalp, head, neck, back, chest, arms, hands, fingers, abdominal area reveals numerous seborrheic keratoses on the back and chest which do not appear atypical, lentigines in sun exposed areas on the face and arms which do not appear atypical and is otherwise unremarkable. The patient will return in 1 year for reevaluation. Electronic Signature on File Electronically Reviewed/Signed by: Alex Harris MD Author Signature Dt/Tm:08/21/2023 09:49 AM Department of Dermatology [facility] Patient Care team information Care Team Personnel Name: DO Stout Franklin J Position: Physician - Family Med Member Role: Primary Care Provider Address: Address: [address] [place] [address], [place] [address] Care Team Related Persons Name: MITRA MCCOLLUM Address: home [address] [place], [place] [address] [phone]
--- OUTSIDE RECORDS SUMMARY | 2024-02-05 01:49 | External Medical Summary | Summary of Care ---
Author Name Unknown Organization [facility] Address [address] [place] [address] Phone [phone] Care Team Providers Care Investigator Name Role Phone Martell Stout DO Primary Care Provider Reason for Visit * Reason Onset Date Comments Dexa Scan 08/22/2023 Encounter Details Date Type Department Care Team (Late st Contact Info) Description 08/22/2023 Telephone Rheumatology [facility] [address] [place] [address] Ned Covarrubias CRNP [email or web address] [place] [address] Dexa Scan Allergies Active Allergy Reactions Criticality Noted Date Comments Pollen 07/01/2012 Hay fever, asthma attacks Sulfa Antibiotics Unknown 07/01/2012 documented as of this encounter (statuses as of 08/22/2023) Medications Medication Sig Dispensed Refills Start Date [...] needed 0 01/13/2021 Active Ergocalciferol 1.25 MG (12945 UT) Oral Capsule (Vitamin D2(Drisdol)) weekly 0 [...] as of this encounter (statuses as of 08/22/2023) Active Problems Problem Noted Date Diagnosed Date Senile osteoporosis 08/29/2021 Encounter for therapeutic drug monitoring 2021 Primary osteoarthritis of both knees 08/29/2021 Primary osteoarthritis of right ankle 08/29/2021 Rheumatoid arthritis involvi ng multiple sites with positive rheumatoid factor 09/06/2015 documented as of this encounter (statuses as of 08/22/2023) Resolved Problems Problem Noted Date Diagnosed Date Resolved Date RA (rheumatoid arthritis) 07/15/2012 documented as of this encounter (statuses as of 08/22/2023) Immunizations Name Administration Dates Next Due COVID-19 [...] encounter Miscellaneous Notes * Telephone Encounter - Ned Covarrubias CRNP - 08/22/2023 12:20 PM EDT Reviewed DEXA scan with the patient at this time. I also reviewed with Dr. Hernandez after our phone call. Recommend continuing Fosamax for 2 more years and monitoring DEXA scan. Advised patient to contact clinic with any questions or concerns. documented in this encounter Plan of Treatment Upcoming Encounters Date Type Department Care Team (Late st Contact Info) Description 01/31/2024 10:30 AM EDT Office Visit Rheumatology [place] [address] [place] [address] Ned Covarrubias CRNP [facility] [email or web address] [address] Health Maintenance Due Date Last Done Comments Depression Screening 1957 Hepatitis C Screening 08/18/1963 DTaP,Tdap,and Td Vaccines (1 - Tdap) 1964 VITAMIN D LEVEL ONCE IN A LIFETIME-USE SMARTSET# 16980 1985 Zoster Vaccines (1 of 2) 07/10/2016 05/15/2016 DXA Scan 08/06/2025 08/07/2023, 04/25/2021 Pneumococcal Vaccine: [...] filedocumented as of this encounter Care Teams Investigator Relationship Specialty Start Date End Date Martell Stout DO [address] [address] PCP - General Family Medicine 07/01/12 documented as of this encounter
--- OUTSIDE RECORDS SUMMARY | 2024-02-05 01:49 | External Medical Summary | Continuity of Care Document ---
Author Name Unknown Organization [facility] [address] [address] Address [address] [place], [place] [id number] Care Team Providers Care Slitting And Shipping Supervisor Name Role Phone Martell Stout Primary Care Physician [phone] Encounter [facility] [id number] Date(s): 08/08/23 - 08/08/[address] [facility] [address] [place] [address] [facility] [address] [facility] [address] [place], [phone] Encounter Diagnosis Impaired fasting glucose(Final) - Essential (primary) hypertension(Final) - Discharge Disposition: Home or Self Care Attending Physician: DO Stout Franklin J Referring Physician: DO Stout [place] J Allergies, Adverse Reactions, Alerts Substance Reaction Severity Status sulfa drugs unsure of reaction Active Immunizations Given and Recorded Vaccine Date Status [...] q7days, Disp# 4 tab, Refills: 3, [facility]acy: [facility] #[id number] Start Date: 05/01/23 Status: Ordered Claritin 10 mg oral tablet Start: 01/13/21 9:18:00 EDT Start Date: 01/13/21 Status: Ordered ergocalciferol 1.25 mg (50,000 intl units) oral capsule Start: 07/29/21 9:19:00 EDT, 1 cap, PO, q7days, Disp# 8 cap, Refills: 0, Pharmacy: [facility] [facility] Start Date: 07/29/21 Status: Ordered losartan 100 mg oral tablet Start: 01/19/23 13:36:00 EDT, See Instructions, Disp# 90 tab, Refills: 3, take 1 tablet by mouth once daily, Pharmacy: [facility] #[id number] Start Date: 01/19/23 Status: Ordered montelukast 10 mg oral tablet Start: 10/04/22 11:06:00 EDT, 1 tab, PO, qPM, Disp# 30 tab, Refills: 1, for asthma and allergies, Pharmacy: [facility] #[id number] Start Date: 10/04/22 Status: Ordered multivitamin Start: 02/13/18 8:17:00 EDT, 1 tab, PO, Daily Start Date: 02/13/18 Status: Ordered ProAir HFA 90 mcg/inh inhalation aerosol Start: 05/27/21 9:40:00 EST, 2 puff, inhaled, qid, Disp# 3 each, Refills: 3, PRN: as needed for wheezing, Pharmacy: [facility] Start Date: 05/27/21 Status: Ordered Symbicort 160 mcg-4.5 mcg/inh inhalation aerosol Start: 02/07/23 13:32:00 EDT, 2 puff, inhaled, bid, Disp# 3 each, Refills: 3, Note to Pharmacy: note change in instructions, Pharmacy: [facility] Start Date: 02/07/23 Status: Ordered Vitamin D3 Start: 01/26/20 8:27:00 EDT Start Date: 01/26/20 Status: Ordered Xarelto 20 mg oral tablet Start: 09/26/22 12:36:00 EDT, 1 tab, PO, qPM, Disp# 90 tab, Refills: 3, Pharmacy: [facility] Start Date: 09/26/22 Status: Ordered Problem [...] FREQUENCY Confirmed Active Weight disorder Confirmed Active Procedures Procedure Date Related Diagnosis Body Site Status Computed tomography (CT) of abdomen and pelvis with contrast 1 04/10/[address] of chest without contrast 2 04/10/[address] of head without contrast 3 04/10/22 Completed Eye examination 4 08/04/[address] [facility] ed Lumbar spine DEXA scan T score [...] embolus was seen in the 12/31/2006 exam. Results Laboratory List Name Date Complete Blood Count w Differential (CBC ,DIFFH) 08/08/23 Comprehensive Metabolic Panel (COMP META B PANEL) 08/08/23 Hemoglobin A1C (HEMOGLOBIN, A1C) 08/08/23 Request to FAX Report (First Location) ( ACC NO TO BE FAXED) 08/08/23 Most recent to oldest [Reference Range]: 1 eGFR CKD-EPI [>60 mL/min/1.73 m2] 82 mL/ min/1.73 m2 1 (08/08/23 8:03 AM) Estimated Average Glucose 111 mg/dL (08/08/23 8:03 AM) Estimated CrCl 75.41 mL/min (08/08/23 12:47 PM) Phone No [phone] (08/08/23 8:03 AM) Faxed on: 08/09/23 08:23 (08/08/23 8:03 AM) MPV [9.0-12.2 fL] 9.7 fL (08/08/23 8:03 AM) Immature Gran% 0.8 % (08/08/23 8:03 AM) Neut% 57.6 % (08/08/23 8:03 AM) Lymph% 27.5 % (08/08/23 8:03 AM) Rosebud% 8.9 % (08/08/23 8:03 AM) Baso% 0.5 % (08/08/23 8:03 AM) Eos% 4.7 % (08/08/23 8:03 AM) Immat Gran, Abs [0-0.4 K/uL] 0.05 K/uL 3 (08/08/23 8:03 AM) Neut, Abs [2.0-7.7 K/uL] 3.41 K/uL (08/08/23 8:03 AM) Lymph, Abs [1.0-3.4 K/uL] 1.63 K/uL (08/08/23 8:03 AM) Rosebud, Abs [0-1.0 K/uL] 0.53 K/uL (08/08/23 8:03 AM) Baso, Abs [0-0.1 K/uL] 0.03 K/uL (08/08/23 8:03 AM) Eos, Abs [0-0.5 K/uL] 0.28 K/uL (08/08/23 8:03 AM) Type of Diff: AUTO *Unknown* (08/08/23 8:03 AM) RDW [11.5-14.2 %] 12.9 % (08/08/23 8:03 AM) Anion Gap [5-14 mmol/L] 4 mmol/L *LOW* (08/08/23 8:03 AM) Alb [3.5-5.0 g/dL] 3.8 g/dL (08/08/23 8:03 AM) Alk Phos [38-126 unit/L] 33 unit/L *LOW* (08/08/23 8:03 AM) ALT [<50 unit/L] 37 unit/L (08/08/23 8:03 AM) AST [15-46 unit/L] 35 unit/L (08/08/23 8:03 AM) BUN [7-20 mg/dL] 16 mg/dL (08/08/23 8:03 AM) Ca [8.4-10.2 mg/dL] 9.5 mg/dL (08/08/23 8:03 AM) Cl- [96-107 mmol/L] 105 mmol/L (08/08/23 8:03 AM) HCO3 [22-30 mmol/L] 30 mmol/L (08/08/23 8:03 AM) Cret [0.70-1.30 mg/dL] 0.95 mg/dL (08/08/23 8:03 AM) HbA1c [<5.7 %] 5.5 % 4 (08/08/23 8:03 AM) Glu [74-106 mg/dL] 91 mg/dL (08/08/23 8:03 AM) Hct [39-48 %] 43.4 % (08/08/23 8:03 AM) Hgb [13.0-17.0 g/dL] 14.6 g/dL (08/08/23 8:03 AM) K [3.5-5.1 mmol/L] 4.7 mmol/L (08/08/23 8:03 AM) MCH [28-33 pg] 33.3 pg *HI* (08/08/23 8:03 AM) MCHC [32-36 g/dL] 33.6 g/dL (08/08/23 8:03 AM) MCV [81-96 fL] 98.9 fL *HI* (08/08/23 8:03 AM) Na [137-145 mmol/L] 139 mmol/L (08/08/23 8:03 AM) Plts [150-350 K/uL] 192 K/uL (08/08/23 8:03 AM) RBC [4.40-5.60 M/uL] 4.39 M/uL *LOW* (08/08/23 8:03 AM) T Bili [0.2-1.3 mg/dL] 0.8 mg/dL (08/08/23 8:03 AM) Prot [6.3-8.2 g/dL] 6.6 g/dL (08/08/23 8:03 AM) WBC [4.0-10.4 K/uL] 5.93 K/uL (08/08/23 8:03 AM) 1Result Comment: Testing Performed By: Dept of Pathology [facility] [address], [address], [place] [address] 2Result Comment: Testing Performed By: Dept of Pathology [facility] [address], [address] [place] [address] 3Result Comment: Testing Performed By: Dept of Pathology [facility] [address], [address], [place] [address] 4Result Comment: ADA Recommended [place] Reference Range: Normal: <5.7% Prediabetes: 5.7-6.4% Diabetes: >6.4% Social History Social History Type Response Tobacco Former smoker, Cigar ettes 1 Smoking Status Never smoked cigaret shayne Sex Male 1Quit over 20 years ago. Smoked 1/4 ppd for 30 years Patient Care team information Care Team Personnel Name: DO Stout Franklin J Position: Physician - Family Med Member Role: Primary Care Provider Address: Address: [facility] [address] [place] [address] Care Team Related Persons Name: MITRA MCCOLLUM Address: home [address] [place] [address], [place] [id number]
[2024-02-05 06:46] LABS: Basophils # (auto) 0.06 K/uL (0.00-0.20); Basophils % (auto) 0.6 %; Eosinophils # (auto) 0.22 K/uL (0.00-0.50); Eosinophils % (auto) 2.4 %; Hematocrit (blood only) 40.4 % (42.0-52.0); Hemoglobin 13.9 g/dl (14.0-18.0); Immature Granulocytes # (auto) 0.06 K/uL (0.01-0.20); Immature Granulocytes % (auto) 0.6 %; Lymphocytes # (auto) 1.49 K/uL (1.20-3.40); Lymphocytes % (auto) 16.1 %; Mean Corpuscular Hemoglobin 32.9 pg (25.0-34.0); Mean Corpuscular Hgb Conc 34.4 g/dL (32.0-36.0); Mean Corpuscular Volume 95.7 fL (80.0-100.0); Mean Platelet Volume 9.9 fL (9.4-12.4); Monocytes # (auto) 0.83 K/uL (0.11-0.59); Neutrophils # (auto) 6.58 K/uL (1.40-6.50); Neutrophils % (auto) 71.3 %; Platelet Count 203 K/uL (130-400); RDW Coefficient of Variation 12.9 % (11.5-14.5); RDW Standard Deviation 45.4 fL (36.4-46.3); Red Blood Count 4.22 M/uL (4.70-6.10); White Blood Count 9.24 K/ul (4.8-10.8)
[2024-02-05] MEDS: PERFLUTREN LIPID MICROSPHERE (DEFINITY) IV ONE (06:56)
[2024-02-05 07:04] LABS: Calcium 9.3 mg/dl (8.6-10.3); Magnesium 1.8 mg/dl (1.7-2.4); Phosphorus 3.5 mg/dl (2.5-4.9)
[2024-02-05 07:13] LABS: Troponin I High Sensitivity 19.3 pg/ml (0-20)
[2024-02-05 07:15] LABS: INR 1.2 (0.9-1.1); Partial Thromboplastin Ratio 1.1; Partial Thromboplastin Time 29 Seconds (21-31); Prothrombin Time 13.1 Seconds (9.0-12.0)
[2024-02-05] MEDS: HYDROXYCHLOROQUINE SULFATE 200 MG TAB PO SCH (08:47)
[2024-02-05] MEDS: MULTIVITAMIN TAB PO SCH (08:47)
[2024-02-05] MEDS: LORATADINE 10 MG TAB PO SCH (08:47)
[2024-02-05] MEDS: VIBEGRON 75 MG TAB PO SCH (08:47)
[2024-02-05] MEDS: FUROSEMIDE 40 MG/4 ML VIAL IV SCH (08:48)
[2024-02-05] MEDS: FLUTICASONE/VILANTEROL 100/25MCG 14 PUFFS/INHALER INH SCH (08:48)
[2024-02-05] MEDS: CHOLECALCIFEROL 125 MCG (5,000 UNITS) TAB PO SCH (08:48)
[2024-02-05] MEDS: FOLIC ACID 400 MCG TAB PO SCH (08:48)
--- NOTE | 2024-02-05 08:54 | Cardiology Consultation ---
Date of Consultation February 05, 2024 Assessment & Plan (1) Atrial flutter with rapid ventricular response: Plan Mr. Kumar has no symptoms associated with his atrial flutter. However, I think it's possible that his cough is actually heart failure rather than asthma and if so he may have been in flutter for more than a month with worsening heart failure given the pulmonary congestion on his Xray. He has received 2 doses of IV furosemide thus far this admission. I will add a bnp to his morning labs. An echo is pending. Given that he has not had know atrial arrhythmia since 2018 and he appears to be in some amount of heart failure, it would be reasonable to try cardioversion again and see if we can get him back in sinus rhythm. This may be difficult however if he has actually been in and out of flutter for some time or if his atria are very large. His rate has been controlled on a diltiazem drip. I will have him transition to metoprolol and discontinue the drip. If cardioversion is unsuccessful, a rate control strategy could be pursued given that he does not feel symptoms from his atrial flutter. He will be NPO at midnight in preparation for his cardioversion. He denies any missed doses of Xeralto in the last month. I reviewed risks and benefits of ca rdioversion with him including stroke, hyper or hypotension, fast or slow heart rate or different arrhythmia. He is agreeable to proceed. History of Present Illness Attending Physician: Samantha Hightower MD History of Present Illness Mr Kumar presented to the ED after visiting his pcp office yesterday for persistent cough which he attributed to allergies. His heart rate was found to be in the 140s and so he was referred to the ED. He has no symptoms from his atrial flutter. He denies palpitations, dyspnea, chest pain, or edema. He is unaware of any episodes of atrial flutter since his cardioversion in 2018. He has not missed any doses of Xeralto in the last month. Allergies Allergy/AdvReac Type Severity Reaction Status Date / Time Sulfa (Sulfonamide Allergy Mild Unknown Verified 11/15/21 09:06 Antibiotics) Home Medications Medication Instructions Recorded Confirmed Type albuterol sulfate 90 mcg/actuation 2 puff inhalation Q6H PRN 01/23/18 02/04/24 History aerosol inhaler Shortness Of Breath Or Wheezing folic acid 800 mcg tablet 800 mcg PO QAM 01/23/18 02/04/24 History hydroxychloroquine 200 mg tablet 400 mg PO QAM 01/23/18 02/04/24 History losartan 100 mg tablet 100 mg PO QAM 01/23/18 02/04/24 History multivitamin 1 tab PO QAM 01/23/18 02/04/24 History alendronate 70 mg tablet (Fosamax) 70 mg PO WK 09/06/21 02/04/24 History budesonide-formoterol HFA 80 1 inh inhalation BID 09/06/21 02/04/24 History mcg-4.5 mcg/actuation aerosol inhaler (Symbicort) cholecalciferol (vitamin D3) 125 125 mcg PO QAM 09/06/21 02/04/24 History mcg (5,000 unit) tablet (Vitamin D3) loratadine 10 mg tablet (Claritin) 10 mg PO QAM 09/06/21 02/04/24 History rivaroxaban 20 mg tablet (Xarelto) 20 mg PO QAM 09/06/21 02/04/24 History mirabegron 50 mg tablet,extended 50 mg PO DAILY #90 tabs 11/15/21 02/04/24 Rx release 24 hr (Myrbetriq) oxycodone 5 mg tablet 5 mg PO Q6H PRN pain #12 tabs 04/10/22 Rx Patient History Medical History Atrial fibrillation History - no problems since cardioversion - 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 Mcdermott History of COVID-04 June 2021 - congestion History of MTHFR mutation taking xarelto daily - Dr. Mcdermott BPH (benign prostatic hyperplasia) Surgical History S/P scrotal varicocelectomy History of tonsillectomy Family History Father Hypertension Mother Hypertension Other No family history of adverse response to anesthesia No family history of bleeding disorder Social History Smoking Status: Former smoker Tobacco Type: Cigarettes Cigarettes Per Day: pack every couple days; Second Hand Exposure: No; Do You Dip or Chew Tobacco: No; Hx Alcohol Use: Yes Alcohol type: hard liquor Hx Substance Use: No Preferred Language: [place] Communication Ability: Effective Merchant Miller Required: No Beliefs That Will Affect Care: None marital status: Current Living Situation: Spouse current occupational status: retired Feels Safe at Home: Yes Assistive Devices: Glasses Review of Systems Review of Systems: All systems reviewed & are unremarkable except as noted in HPI & below Physical Exam Constitutional: WD/WN, vitals as above Respiratory: normal respiratory effort, lungs clear to auscultation Cardiovascular: RRR, no murmur, no edema Skin: no rashes, warm and dry Neurologic: moves all extremities and awake Psychiatric: A+Ox3, euthymic affect Results & Data Vital Signs (Past 12 Hours) Vital Signs Temp Pulse Pulse Resp BP BP Pulse Ox 02/05/24 07:30 36.6 C 85 16 111/86 02/05/24 02:48 98 H 02/05/24 02:26 36.5 C 132 H 20 113/79 94 02/04/24 23:00 02/04/24 22:58 36.8 C 141 H 20 144/86 H 93 02/04/24 22:30 103 H 26 H 114/70 93 02/04/24 22:15 97 H 22 119/81 93 02/04/24 21:56 105 H 24 132/82 02/04/24 21:51 141 H O2 Del Method 02/05/24 07:30 02/05/24 02:48 02/05/24 02:26 Room Air 02/04/24 23:00 Room Air 02/04/24 22:58 Room Air 02/04/24 22:30 Room Air 02/04/24 22:15 Room Air 02/04/24 21:56 02/04/24 21:51
[2024-02-05] MEDS ORDERED: Nursing to Pharmacy Communication SCH ×2 (09:00)
[2024-02-05] MEDS: RIVAROXABAN 20 MG TAB PO SCH (10:45)
[2024-02-05] MEDS: METOPROLOL TARTRATE 25 MG TAB PO SCH (10:45)
[2024-02-05] MEDS: MAGNESIUM SULFATE / D5W 1 GM/100 ML BAG IV ONE (10:45)
[2024-02-05] MEDS: [UNRECOGNIZED DRUG - REMARK] ONE (11:34)
[2024-02-05] MEDS ORDERED: RIVAROXABAN 20 MG TAB PO SCH (16:30)
[2024-02-05] MEDS: METOPROLOL TARTRATE 25 MG TAB PO ONE (17:50)
--- NOTE | 2024-02-05 17:52 | Hospitalist Progress Note ---
Date of Service February 05, 2024 Assessment & Plan (1) Atrial flutter with rapid ventricular response: Plan: Has a history of cardioversion 2018, presented with symptoms of persistent cough which is likely from acute on chronic HFpEF rather than asthma exacerbation Found to have rapid atrial flutter with rates in the 140s Placed on diltiazem drip and had adequate rate control at 10 mg/h-converted to metoprolol 25 Mg p.o. 3 times daily and rates remain in the 140s N.p.o. after midnight and plan for electric cardioversion on 02/05 Appreciate cardiology consultation Continue Xarelto he has not missed any doses in the last month Continue to hold losartan Follow BMP, magnesium and replace electrolytes to keep optimal-give 1 g IV magnesium sulfate (2) CHF exacerbation: Plan: Acute on chronic HFpEF-updated echocardiogram pending on 02/04 BNP is not elevated but he is also obese so could be falsely low With cough, evidence of congestive heart failure on chest x-ray, not hypoxic Continue Lasix 40 Mg IV once daily Follow I's and O's, daily weights, low-sodium diet Rate control of atrial flutter as above Will give guaifenesin DM as needed for cough for symptomatic relief (3) History of pulmonary embolism: Plan: Continues on Xarelto (4) Asthma: Plan: Presented with cough x 2 weeks which is more likely due to heart failure as above Albuterol inhaler as needed Maintenance daily inhaler (5) Rheumatoid arthritis: Plan: No acute issues Continue Plaquenil (6) HTN (hypertension): Plan: Blood pressures are controlled Started metoprolol for rate control Holding home losartan Plan Bladder spasm-Continue mirabegron DVT prophylaxis-Xarelto Disposition-continued stay in PCU Admission and Anticipated Discharge Date Admission Date: February 04, 2024 Subjective Patient complains of an ongoing dry cough, no chest pain. Heart rates were controlled on diltiazem drip but was converted to oral metoprolol this morning by cardiology. Heart rates are currently in the 140s and he is about to get extra p.o. metoprolol as per cardiology. Physical Exam Constitutional: WD/WN, vitals as above + obese Respiratory: normal respiratory effort, lungs clear to auscultation (except mild crackles at bases) + cough Cardiovascular: Rate/Rhythm: + tachycardic and + irregularly irregular Heart Sounds: no murmur Extremities: + edema (trace pitting edema distal legs bilat) Gastrointestinal (Abdomen): normal bowel sounds, soft, nontender, no hepatosplenomegaly Psychiatric: A+Ox3, euthymic affect Results & Data Results & Data Vital Signs (Past 12 Hours) Vital Signs Temp Pulse Pulse Resp BP 02/05/24 17:17 136 H 118/72 02/05/24 15:28 75 02/05/24 15:24 36.8 C 99 H 18 91/64 L 02/05/24 11:00 36.7 C 84 18 95/66 L 02/05/24 08:00 86 02/05/24 07:30 36.6 C 85 16 111/86 Laboratory Results CBC, BMP, magnesium, troponin reviewed PG Care Time/CCT Total # of Minutes Spent Total Time Spent with Patient: Total time spent is greater than 50% in coordination of care (as documented) at patient's floor/unit and/or counseling patient: Coding Level of Care Code 35673 SUB INP/OBS CARE 2/35MIN Diagnoses Atrial flutter with rapid ventricular response I48.92 CHF exacerbation I50.9 History of pulmonary embolism Z86.711 Asthma J45.909 Rheumatoid arthritis M06.9 HTN (hypertension) I10
--- NOTE | 2024-02-05 18:09 | XCELERA ---
[id number]
[2024-02-05] MEDS: guaiFENesin/DEXTROM SYRUP 200MG/20MG 10ML UDC PO PRN (19:33)
[2024-02-06 06:58] LABS: Basophils # (auto) 0.05 K/uL (0.00-0.20); Basophils % (auto) 0.6 %; Eosinophils # (auto) 0.27 K/uL (0.00-0.50); Eosinophils % (auto) 3.1 %; Hematocrit (blood only) 42.1 % (42.0-52.0); Hemoglobin 14.5 g/dl (14.0-18.0); Immature Granulocytes # (auto) 0.06 K/uL (0.01-0.20); Immature Granulocytes % (auto) 0.7 %; Lymphocytes # (auto) 1.36 K/uL (1.20-3.40); Lymphocytes % (auto) 15.9 %; Mean Corpuscular Hemoglobin 32.5 pg (25.0-34.0); Mean Corpuscular Hgb Conc 34.4 g/dL (32.0-36.0); Mean Corpuscular Volume 94.4 fL (80.0-100.0); Mean Platelet Volume 10.1 fL (9.4-12.4); Monocytes # (auto) 0.85 K/uL (0.11-0.59); Monocytes % (auto) 9.9 %; Neutrophils # (auto) 5.99 K/uL (1.40-6.50); Neutrophils % (auto) 69.8 %; Platelet Count 208 K/uL (130-400); RDW Coefficient of Variation 12.8 % (11.5-14.5); RDW Standard Deviation 44.3 fL (36.4-46.3); Red Blood Count 4.46 M/uL (4.70-6.10); White Blood Count 8.58 K/ul (4.8-10.8)
[2024-02-06 07:34] LABS: Albumin Level 3.9 gm/dl (3.4-5.0); BUN Creatinine Ratio 23.5 (10-20); Calcium 9.2 mg/dl (8.6-10.3); Creatinine Clr Calc Pharmacy 69.4 ml/min; Magnesium 1.9 mg/dl (1.7-2.4); Phosphorus 3.5 mg/dl (2.5-4.9); Potassium 4.2 mmol/L (3.5-5.1)
--- NOTE | 2024-02-06 07:49 | Anesthesiology Consultation ---
Date of Service February 06, 2024 Assessment & Plan (1) Encounter for pre-operative examination: Chart Review Chart Review: Acceptable Risk for Surgery History Surgery Operation Date: 02/06/24 07:15 Proposed Procedures p Cardioversion Microbiology Professor w/Anesthesia - Chrissie Villalobos DO Height/Weight Height: 5 ft 7 in Weight: 106.5 kg Allergies Allergy/AdvReac Type Severity Reaction Status Date / Time Sulfa (Sulfonamide Allergy Mild Unknown Verified 11/15/21 09:06 Antibiotics) Medications Home Medications Medication Instructions Recorded Confirmed Last Taken albuterol sulfate 90 mcg/actuation 2 puff inhalation Q6H PRN 01/23/18 02/04/24 Unknown aerosol inhaler Shortness Of Breath Or Wheezing folic acid 800 mcg tablet 800 mcg PO QAM 01/23/18 02/04/24 02/04/24 hydroxychloroquine 200 mg tablet 400 mg PO QAM 01/23/18 02/04/24 02/04/24 losartan 100 mg tablet 100 mg PO QAM 01/23/18 02/04/24 02/04/24 multivitamin 1 tab PO QAM 01/23/18 02/04/24 02/04/24 alendronate 70 mg tablet (Fosamax) 70 mg PO WK 09/06/21 02/04/24 10/03/21 budesonide-formoterol HFA 80 1 inh inhalation BID 09/06/21 02/04/24 10/04/21 05:30 mcg-4.5 mcg/actuation aerosol inhaler (Symbicort) cholecalciferol (vitamin D3) 125 125 mcg PO QAM 09/06/21 02/04/24 02/04/24 mcg (5,000 unit) tablet (Vitamin D3) loratadine 10 mg tablet (Claritin) 10 mg PO QAM 09/06/21 02/04/24 02/04/24 rivaroxaban 20 mg tablet (Xarelto) 20 mg PO QAM 09/06/21 02/04/24 02/04/24 mirabegron 50 mg tablet,extended 50 mg PO DAILY #90 tabs 11/15/21 02/04/24 02/04/24 release 24 hr (Myrbetriq) oxycodone 5 mg tablet 5 mg PO Q6H PRN pain #12 tabs 04/10/22 Unknown Active Medications Generic Name Dose Route Start Last Admin Trade Name Freq PRN Reason Stop Dose Admin Fluticasone/Vilanterol 1 puffs 02/05/24 09:00 02/05/24 08:48 Fluticasone/Vilanterol 100/25mcg 14 Puffs/Inhaler INH 03/06/24 08:59 1 puffs DAILY MAINE Administration Protocol Folic Acid 800 mcg 02/05/24 09:00 02/05/24 08:48 Folic Acid 400 Mcg Tab PO 03/06/24 08:59 800 mcg QAM MAINE Administration Furosemide 40 mg 02/05/24 09:00 02/05/24 08:48 Furosemide 40 Mg/4 Ml Vial IV 03/06/24 08:59 40 mg QAM MAINE Administration Guaifenesin/Dextromethorphan 10 ml 02/05/24 17:51 02/05/24 19:33 Guaifenesin/Dextrom Syrup 200mg/20mg 10ml Udc PO 03/06/24 17:50 10 ml Q6H PRN Administration Cough Hydroxychloroquine Sulfate 400 mg 02/05/24 09:00 02/05/24 08:47 Hydroxychloroquine Sulfate 200 Mg Tab PO 03/06/24 08:59 400 mg QAM MAINE Administration Loratadine 10 mg 02/05/24 09:00 02/05/24 08:47 Loratadine 10 Mg Tab PO 03/06/24 08:59 10 mg QAM MAINE Administration Metoprolol Tartrate 25 mg 02/05/24 09:00 02/05/24 21:35 Metoprolol Tartrate 25 Mg Tab PO 03/06/24 08:59 25 mg BID MAINE Administration Multivitamins 1 tab 02/05/24 09:00 02/05/24 08:47 Multivitamin Tab PO 03/06/24 08:59 1 tab QAM MAINE Administration Rivaroxaban 20 mg 02/05/24 08:54 02/05/24 10:45 Rivaroxaban 20 Mg Tab PO 03/06/24 08:53 20 mg DAILY@0800 MAINE Administration Vibegron 75 mg 02/05/24 09:00 02/05/24 08:47 Vibegron 75 Mg Tab PO 03/06/24 08:59 75 mg DAILY MAINE Administration Vitamin D 125 mcg 02/05/24 09:00 02/05/24 08:48 Cholecalciferol 125 Mcg (5,000 Units) Tab PO 03/06/24 08:59 125 mcg QAM MANIE Administration Past Medical History Medical History (Updated 02/06/24 @ 07:47 by Dontrell Hunt MD) CHF exacerbation Rheumatoid arthritis 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 Mcdermott History of COVID-04 June 2021 - congestion History of MTHFR mutation taking xarelto daily - Dr. Mcdermott BPH (benign prostatic hyperplasia) Past Family History Family History Father Hypertension Mother Hypertension Other No family history of adverse response to anesthesia No family history of bleeding disorder Past Surgical History Surgical History S/P scrotal varicocelectomy History of tonsillectomy Social History Smoking Status: Former smoker tobacco type: cigarettes Smoking cigarettes per day: pack every couple days Do You Dip or Chew Tobacco: No Hx Alcohol Use: Yes Alcohol type: hard liquor alcohol intake frequency: 0-2 drinks per day Hx Substance Use: No substance use type: does not use Physical Exam Vital Signs Last Vital Signs Temp 36.8 C 02/06/24 03:36 Pulse 137 H 02/06/24 07:33 Resp 18 02/06/24 07:00 BP 128/87 02/06/24 07:00 Pulse Ox 95 02/06/24 07:00 O2 Del Method Room Air 02/06/24 07:00 O2 Flow Rate 0 02/04/24 18:19 Testing Laboratory Results 02/06/24 06:09 02/06/24 06:09 PT 13.1 Seconds (9.0-12.0) H 02/05/24 06:16 INR 1.2 (0.9-1.1) H 02/05/24 06:16 APTT 29 Seconds (21-31) 02/05/24 06:16 Electrocardiogram Date: 02/04/24 Findings: + AFIB @ (flutter 110) Echocardiogram Date: 02/05/24 EF: 40-45% Valvular Disease: + no significant valvular disease mild pulm htn
--- NOTE | 2024-02-06 08:08 | Cardioversion ---
Date of Service February 06, 2024 Electrical Cardioversion Rpt Electrical Cardioversion Report After informed consent was obtained and in an NPO state DC cardioversion was performed with sedation as per anesthesia. Pt was given IV metoprolol prior to cardioversion due to HR 138bpm in Afib. Synchronous biphasic DC cardioversion at 200J was given x 1, NSR was achieved. Patient tolerated the procedure well. VSS. Pt will return back to his room. Advance diet as able.
[2024-02-06] MEDS ORDERED: PROPOFOL IV EMULSION 10 MG/ML 20 ML VIAL IV ONE (08:11)
[2024-02-06] MEDS ORDERED: LIDOCAINE 2% 2 ML VIAL/AMP(20MG/ML) INFIL ONE (08:11)
--- NOTE | 2024-02-06 08:15 | Cardiology Progress Note ---
Date of Service February 06, 2024 Assessment & Plan (1) Atrial fibrillation with RVR: (2) ACC/AHA stage C left heart failure with decreased ejection fraction: (3) MTHFR (methylene THF reductase) deficiency and homocystinuria: Plan I suspect the LV dysfunction is related to the recurrent AF with RVR. Would consider EP eval post DC for eval of ablation. Cont metoprolol-succinate and would add Entresto at low dose as long as renal function allows. Will repeat limited ECHO in 1 month to reassess EF in NSR. s/o successful cardioversion. Admission and Anticipated Discharge Date Admission Date: February 04, 2024 Subjective Patient seen an examined prior to cardioversion. HR running in 130s still in Afib. Given 5mg IV lopressor prior due to HR. Pt was not aware of his tachycardia. ECHO reviewed this am-done while HR was fast in 130-140s. LV function is NOT normal-per my impression, EF 30-35% depending on view. Review of Systems Review of Systems: All systems reviewed & are unremarkable except as noted in HPI & below Physical Exam Physical Exam: AAO x 3 in NAD Neck: no JVD Respiratory: diminished b/l Cardiovascular: tachy KAREN at base Results & Data Vital Signs (Past 12 Hours) Vital Signs Temp Pulse Pulse Resp BP Pulse Ox O2 Del Method 02/06/24 07:33 137 H 02/06/24 07:00 138 H 18 128/87 95 Room Air 02/06/24 03:36 36.8 C 133 H 19 118/90 93 Room Air 02/05/24 23:14 36.7 C 132 H 22 141/95 H 95 Room Air 02/05/24 23:10 134 H 02/05/24 21:00 Room Air Laboratory Results Abnormal lab results 02/06/24 Range/Units 06:09 RBC 4.46 L (4.70-6.10) M/uL [place] # (Auto) 0.85 H (0.11-0.59) K/uL BUN 24 H (6-23) mg/dl BUN/Creatinine Ratio 23.5 H (10-20) Medications Administered Current Inpatient Medications Acetaminophen (Acetaminophen 325 Mg Tab) 650 mg PO Q4H PRN PRN Reason: Pain or Fever Stop: 03/05/24 22:56 Albuterol (Albuterol Hfa 8 Gm Inhaler) 2 puffs INH Q6H PRN PRN Reason: Shortness Of Breath Or Wheezin Stop: 03/05/24 22:56 Fluticasone/Vilanterol (Fluticasone/Vilanterol 100/25mcg 14 Puffs/Inhaler) 1 puffs INH DAILY [facility]; Protocol Stop: 03/06/24 08:59 Last Admin: 02/05/24 08:48 Dose: 1 puffs Folic Acid (Folic Acid 400 Mcg Tab) 800 mcg PO QAM MAINE Stop: 03/06/24 08:59 Last Admin: 02/05/24 08:48 Dose: 800 mcg Furosemide (Furosemide 40 Mg/4 Ml Vial) 40 mg IV QAM [facility] Stop: 03/06/24 08:59 Last Admin: 02/05/24 08:48 Dose: 40 mg Guaifenesin/Dextromethorphan (Guaifenesin/Dextrom Syrup 200mg/20mg 10ml Udc) 10 ml PO Q6H PRN PRN Reason: Cough Stop: 03/06/24 17:50 Last Admin: 02/05/24 19:33 Dose: 10 ml Hydroxychloroquine Sulfate (Hydroxychloroquine Sulfate 200 Mg Tab) 400 mg PO QAM [facility] Stop: 03/06/24 08:59 Last Admin: 02/05/24 08:47 Dose: 400 mg Loratadine (Loratadine 10 Mg Tab) 10 mg PO QAM [facility] Stop: 03/06/24 08:59 Last Admin: 02/05/24 08:47 Dose: 10 mg Metoprolol Tartrate (Metoprolol Tartrate 25 Mg Tab) 25 mg PO BID [facility] Stop: 03/06/24 08:59 Last Admin: 02/05/24 21:35 Dose: 25 mg Multivitamins (Multivitamin Tab) 1 tab PO QAM [facility] Stop: 03/06/24 08:59 Last Admin: 02/05/24 08:47 Dose: 1 tab Rivaroxaban (Rivaroxaban 20 Mg Tab) 20 mg PO DAILY@0800 [facility] Stop: 03/06/24 08:53 Last Admin: 02/05/24 10:45 Dose: 20 mg Vibegron (Vibegron 75 Mg Tab) 75 mg PO DAILY [facility] Stop: 03/06/24 08:59 Last Admin: 02/05/24 08:47 Dose: 75 mg Vitamin D (Cholecalciferol 125 Mcg (5,000 Units) Tab) 125 mcg PO [facility] Stop: 03/06/24 08:59 Last Admin: 02/05/24 08:48 Dose: 125 mcg
--- NOTE | 2024-02-06 09:03 | Anesthesiology Progress Note ---
Date of Service February 06, 2024 Anesthesia Post Procedure Vital Signs Vital Signs: Temp Pulse Pulse Resp BP Pulse Ox O2 Del Method 02/06/24 08:50 36.4 C L 90 16 112/60 93 Room Air 02/06/24 08:24 88 18 114/82 96 Room Air 02/06/24 08:15 82 18 108/81 96 Room Air 02/06/24 08:05 60 18 109/78 97 Room Air 02/06/24 07:33 137 H 02/06/24 07:00 138 H 18 128/87 95 Room Air 02/06/24 03:36 36.8 C 133 H 19 118/90 93 Room Air 02/05/24 23:14 36.7 C 132 H 22 141/95 H 95 Room Air 02/05/24 23:10 134 H 02/05/24 21:00 Room Air 02/05/24 19:36 36.8 C 139 H 19 113/79 95 Room Air 02/05/24 17:17 136 H 118/72 02/05/24 15:28 75 02/05/24 15:24 36.8 C 99 H 18 91/64 L 02/05/24 11:00 36.7 C 84 18 95/66 L Transfer of Care Handoff Completed per policy Notes Mental Status: alert / awake / arousable Patient Amnestic to Procedure: Yes Nausea / Vomiting: adequately controlled Pain: adequately controlled Airway Patency, RR, SpO2: stable & adequate BP & HR: stable & adequate Hydration State: stable & adequate Anesthetic Complications: no major complications apparent
[2024-02-06 09:06] VITALS: RESP 18
[2024-02-06] MEDS: METOPROLOL TARTRATE 1 MG/ML VIAL IV ONE (09:32)
[2024-02-06] MEDS ORDERED: MAGNESIUM SULFATE / D5W 1 GM/100 ML BAG IV ONE (10:11)
[2024-02-06] MEDS: MAGNESIUM OXIDE 400 MG TAB PO ONE (10:45)
[2024-02-06] MEDS: METOPROLOL SUCC 25MG EXT REL TAB PO ONE (10:46)
[2024-02-06 11:03] VITALS: BP 107/75; TEMP 97.5; O2SAT 92
--- NOTE | 2024-02-06 13:44 | Discharge Summary ---
Discharge Summary Date of Service February 06, 2024 Principal Dx & Hospital Course #1 = Principal Diagnosis (1) Atrial flutter with rapid ventricular response: Has a history of cardioversion 2017, presented with symptoms of persistent cough which is likely from acute HFrEF rather than asthma exacerbation Found to have rapid atrial flutter with rates in the 140s Placed on diltiazem drip and had adequate rate control at 10 mg/h-converted to metoprolol 25 Mg p.o. 3 times daily and rates remain in the 140s Now s/p electric cardioversion on 02/05 and remains in sinus rhythm with rates in the 80s Appreciate cardiology consultation Continue Xarelto Switch tartrate to metoprolol succinate 50 mg daily-titrate as an outpatient Continue to hold losartan after discharge and cardiology may add on Entresto if blood pressure can tolerate as an outpatient Cardiology plans on adding monitoring tech as an outpatient Stable for discharged home (2) CHF exacerbation: Acute HFrEF-echo here now with EF 40-45% but may be even lower than that as per cardiology interpretation BNP is not elevated but he is also obese so could be falsely low With cough, evidence of congestive heart failure on chest x-ray, not hypoxic-was given once daily IV Lasix and had improvement in cough Will give furosemide 40 mg p.o. daily as needed for weight gain or respiratory symptoms, peripheral edema Counseled on daily weights, low-sodium diet, and fluid restriction of 1800 mL/day at discharge Rate control of atrial flutter as above-now in sinus rhythm Starting Toprol XL Will add on Entresto as an outpatient-holding losartan for now for low normal blood pressures (3) History of pulmonary embolism: Continues on Xarelto (4) Asthma: Presented with cough x 2 weeks which is more likely due to heart failure as above Albuterol inhaler as needed Maintenance daily inhaler (5) Rheumatoid arthritis: No acute issues Continue Plaquenil (6) HTN (hypertension): Blood pressures are controlled Started metoprolol for rate control Holding home losartan as above and may start Entresto as an outpatient Plan Bladder spasm-Continue mirabegron DVT prophylaxis-Xarelto Disposition-stable for discharge to home Notes For Next Care Provider Cardiology will be applying cardiac event monitor as an outpatient Medication Changes From Visit Added Toprol-XL 50 mg daily Holding losartan Admission HPI Per Admitting Provider The patient is a 78-year-old male with past medical history including atrial flutter on chronic Xarelto, BPH with LUTS, MTHFR, allergic rhinitis, history of pulmonary embolism, obesity, asthma, osteoporosis, rheumatoid arthritis, and chronic pain syndrome. Presents to the emergency department with symptoms as noted above. He was found to be in atrial flutter with RVR, and started on Cardizem bolus/drip per protocol by the ED. Chest x-ray also revealed congestive heart failure, and fluids he received furosemide 40 mg IV after initial 500 mL bolus of normal saline. Due to symptoms presenting with cough, respiratory [employer] was advised to be sent, and is pending at this time Discharge Exam Constitutional WD/WN, vitals as above + obese Respiratory normal respiratory effort, lungs clear to auscultation (except mild crackles at bases) + cough Cardiovascular Rate/Rhythm: + tachycardic and + irregularly irregular Heart Sounds: no murmur Extremities: + edema (trace pitting edema distal legs bilat) Gastrointestinal (Abdomen) normal bowel sounds, soft, nontender, no hepatosplenomegaly Psychiatric A+Ox3, euthymic affect Discharge Plan Discharge Items Patient Disposition: Home - Self-Care Reason For Visit: ATRIAL FLUTTER WITH RVR, CHF EX Discharge Diagnosis: Rapid atrial flutter Acute heart failure with reduced ejection fraction Condition on Discharge: Good Activity: As commented below Lifting: Gradually increase as tolerated Bathing: No limitations Exercise/Sports: Gradually increase as tolerated Driving/Machine Use: Resume 1 day after discharge Non-emergency contact: Primary Care Provider and Environmental Field Services Technician Call non-emergency contact if: you have any medication questions and your symptoms worsen Follow-up/Referrals: Martell Stout DO [Primary Care Provider] - (Follow-up within 1 to 2 weeks) Chrissie Villalobos DO [Physician] - (Dr. Villalobos's office will contact you with your appointment date and time) Diet: Low Sodium (2gm) Fluids: 1800ml (7 cups) Addtl Attending Provider Instructions: You were admitted with a rapid irregular heart rhythm called atrial flutter. You had an electrical cardioversion back to a normal heart rhythm. You were started on metoprolol to help control your heart rate. Your heart function is decreased a bit likely from having atrial flutter. You will be started on additional medications to help strengthen your heart. One of these new medications is called Entresto and the wildlife biostation research ecologist will likely start you on this when you follow-up with her in the office. You will also be contacted to come in to place a monitoring tech to see if you have recurrence of atrial flutter. If you gain more than 2 to 3 pounds in 1 day or notice leg swelling, increasing cough or shortness of breath, please take your furosemide water pill. Call your Primary Care doctor if any of the following symptoms or problems start or get worse: * Shortness of breath or difficulty breathing * Wake up at night short of breath * Chest pain * Cough * Swelling of your hands, feet, or legs * More fatigued or tired with your normal activity * Palpitations - sudden fast heart beats WEIGHT * Weigh yourself every morning after using the bathroom. * Use the same scale. * Wear the same amount of clothing. * Write your weight down on a chart. * Call your Primary Care doctor if you gain more than 2-3 pounds in 1-2 days. MEDICATIONS * Use this discharge instruction sheet for medication instructions. * Take your medications at the time your doctor ordered. * Do not skip a dose of your medicines. * If you miss a dose of medicine, take it as soon as possible, but DO NOT DOUBLE A DOSE. * Read your medicine information when you get home. * Know all of the side effects of your medicine. If in doubt, ask your pharmacist * Call your Primary Care doctor's office if you have any side effects. * Be sure all of your doctors know what medicine and herbs you take (including cold, flu, and herbal medicine). Take the following with you to your follow-up doctor appointments: * Weight Chart * Medication List * List of questions Do not drink excessive alcohol, beer or wine. Pending Studies at Discharge: No Stand-Alone Forms: My [email or web address] Textbook Time, Smoking Cessation Medications and DC Order Prescriptions: New metoprolol succinate 50 mg Tablet Extended Release 24 Hr 50 mg PO QAM Qty: 30 0RF furosemide 40 mg tablet 40 mg PO DAILY PRN (Reason: weight gain of 2 pounds per day or leg swelling) Qty: 20 0RF Continued Myrbetriq 50 mg tablet extended release 24 hr 50 mg PO DAILY Qty: 90 3RF multivitamin Tablet 1 tab PO QAM hydroxychloroquine 200 mg tablet 400 mg PO QAM albuterol sulfate 90 mcg/actuation Hfa Aerosol Inhaler 2 puff INHALATION Q6H PRN (Reason: Shortness Of Breath Or Wheezing) folic acid 800 mcg Tablet 800 mcg PO QAM oxycodone 5 mg tablet 5 mg PO Q6H PRN (Reason: pain) Qty: 12 0RF Rx Instructions: Initial Treatment alendronate [Fosamax] 70 mg Tablet 70 mg PO WK loratadine [Claritin] 10 mg Tablet 10 mg PO QAM budesonide-formoterol [Symbicort] 80-4.5 mcg/actuation Hfa Aerosol Inhaler 1 inh INHALATION BID cholecalciferol (vitamin D3) [Vitamin D3] 125 mcg (5,000 unit) Tablet 125 mcg PO QAM Xarelto 20 mg Tablet 20 mg PO QAM Held losartan 100 mg tablet 100 mg PO QAM Hold Instructions: Resume on 02/13/24. Hold for now due to your blood pressures being slightly on the lower end of normal. The wildlife biostation research ecologist will let you know when this can be resumed or replaced with Entresto Discharge Orders: Discharge Order- CHF (Routine); Ordered 02/06/24 Ordered By: Samantha Hightower Admission Data Admit Date/Time: 02/04/24 19:57 Attending Provider: Samantha Hightower Admit Provider: Blayne Guerrero Primary Care Provider: Martell Stout Other Providers: Blayne Guerrero; Chrissie Villalobos Hospital Stay Data Consultations 02/04/24 19:01 ED Decision to Admit Stat 02/04/24 22:57 Consult Cardiology Routine 02/05/24 10:29 Consult Anesthesiology Routine Procedures Performed Operation Date: 02/06/24 07:15 Actual Procedures p Cardioversion - Chrissie Villalobos DO Pending Results Patient Have Any Pending Studies at Discharge: No Discharge Instructions Given to Patient (Per Discharging Provider) You were admitted with a rapid irregular heart rhythm called atrial flutter. You had an electrical cardioversion back to a normal heart rhythm. You were started on metoprolol to help control your heart rate. Your heart function is decreased a bit likely from having atrial flutter. You will be started on additional medications to help strengthen your heart. One of these new medications is called Entresto and the wildlife biostation research ecologist will likely start you on this when you follow-up with her in the office. You will also be contacted to come in to place a monitoring tech to see if you have recurrence of atrial flutter. If you gain more than 2 to 3 pounds in 1 day or notice leg swelling, increasing cough or shortness of breath, please take your furosemide water pill. Call your Primary Care doctor if any of the following symptoms or problems start or get worse: * Shortness of breath or difficulty breathing * Wake up at night short of breath * Chest pain * Cough * Swelling of your hands, feet, or legs * More fatigued or tired with your normal activity * Palpitations - sudden fast heart beats WEIGHT * Weigh yourself every morning after using the bathroom. * Use the same scale. * Wear the same amount of clothing. * Write your weight down on a chart. * Call your Primary Care doctor if you gain more than 2-3 pounds in 1-2 days. MEDICATIONS * Use this discharge instruction sheet for medication instructions. * Take your medications at the time your doctor ordered. * Do not skip a dose of your medicines. * If you miss a dose of medicine, take it as soon as possible, but DO NOT DOUBLE A DOSE. * Read your medicine information when you get home. * Know all of the side effects of your medicine. If in doubt, ask your pharmacist * Call your Primary Care doctor's office if you have any side effects. * Be sure all of your doctors know what medicine and herbs you take (including cold, flu, and herbal medicine). Take the following with you to your follow-up doctor appointments: * Weight Chart * Medication List * List of questions Do not drink excessive alcohol, beer or wine. Total Time Total Time Spent Total Time Spent (In Minutes): 35 minutes Total Time Includes: Examination of the Patient, Discharge Planning, Medication Reconciliation and Communication With Other Providers (Discussed care with cardiology) Coding Level of Care Code 29652 INP/OBS DISCH >30 MIN Diagnoses Atrial flutter with rapid ventricular response I48.92 CHF exacerbation I50.9 History of pulmonary embolism Z86.711 Asthma J45.909 Rheumatoid arthritis M06.9 HTN (hypertension) I10
[2024-02-06 14:09] VITALS: PULSE 89
[2024-02-07] MEDS ORDERED: METOPROLOL SUCC 50MG EXT REL TAB PO SCH (09:00)
--- NOTE | 2024-02-07 09:40 | Electrocardiogram Report ---
Test Reason : Blood Pressure : */* mmHG Vent. Rate : 110 BPM Atrial Rate : 277 BPM P-R Int : * ms QRS Dur : 110 ms QT Int : 310 ms P-R-T Axes : * -54 93 degrees QTcB Int : 419 ms Atrial flutter with variable A-V block Left axis deviation Minimal voltage criteria for LVH, may be normal variant ( [place] product ) Nonspecific T wave abnormality Abnormal ECG When compared with ECG of 04-Feb-2024 17:47, (unconfirmed) ST no longer depressed in Inferior leads ST no longer depressed in Anterior leads Nonspecific T wave abnormality now evident in Inferior leads Confirmed by Chrissie Villalobos (Joselyn) on 02/07/2024 9:40:12 AM Referred By: REFERRED SELF Confirmed By: Chrissie Villalobos
--- NOTE | 2024-02-07 09:40 | Electrocardiogram Report ---
Test Reason : Blood Pressure : */* mmHG Vent. Rate : 135 BPM Atrial Rate : 286 BPM P-R Int : * ms QRS Dur : 108 ms QT Int : 274 ms P-R-T Axes : -88 -52 110 degrees QTcB Int : 411 ms Atrial flutter with variable A-V block Left anterior fascicular block Minimal voltage criteria for LVH, may be normal variant ( Jun product ) Nonspecific ST and T wave abnormality Abnormal ECG When compared with ECG of 24-Jan-2018 10:31, Atrial flutter has replaced Sinus rhythm Vent. rate has increased by [address] now depressed in Inferior leads Confirmed by Chrissie Villalobos (Joselyn) on 02/07/2024 9:39:58 AM Referred By: REFERRED SELF Confirmed By: Chrissie Villalobos
--- NOTE | 2024-02-07 09:41 | Electrocardiogram Report ---
Test Reason : Blood Pressure : */* mmHG Vent. Rate : 76 BPM Atrial Rate : 76 BPM P-R Int : 196 ms QRS Dur : 122 ms QT Int : 410 ms P-R-T Axes : 20 -57 51 degrees QTcB Int : 461 ms Sinus rhythm with Premature atrial complexes Left anterior fascicular block Left ventricular hypertrophy with QRS widening ( R in aVL , Jun product ) Abnormal ECG When compared with ECG of 04-Feb-2024 18:01, (unconfirmed) Sinus rhythm has replaced Atrial flutter s/p DC Cardioversion Confirmed by Chrissie Villalobos (Joselyn) on 02/07/2024 9:40:34 AM Referred By: REFERRED SELF Confirmed By: Chrissie Villalobos
== END 2024-02-06 14:41 | disposition home or self-care (01) | DRG 308 ==
LOC: ED 17:36 → 2S 19:57 → SUATTDRO 19:57 → 2S 23:51